=== PATIENT | male | born 1965 | race Caucasian/White ===

== ENCOUNTER → 2020-05-26 14:43 | Outpatient (CLI) | payer OTHER, SELFPAY ==
[2020-05-28 14:01] LABS: Covid-19 Nasal PCR Sendout Lex NOT DETECTED
== END ==
PROVIDERS: PCP Family Medicine; Visit Provider Family Medicine
DX: Z20.828 Contact with and (suspected) exposure to other viral communicable diseases (principal)
CPT/HCPCS: U0004

== ENCOUNTER → 2021-03-09 14:48 | Outpatient (CLI) | payer OTHER, SELFPAY ==
--- NOTE | 2021-03-09 14:48 | US_ITS ---
PROCEDURE: US TESTICULAR CLINICAL INDICATION: Left-sided testicular pain COMPARISON: No exams were available for comparison FINDINGS: Right testicle is 4.6 x 2.1 x 3.2 cm. No testicular mass apparent. There is blood flow present to the right testicle. Right epididymis has an unremarkable appearance. No hydrocele spermatocele or varicocele evident on the right. Left testicle is 4.5 x 2.3 x 2.8 cm. Testicle has an unremarkable appearance with no mass or hydrocele or varicocele apparent. There is a small epididymal cyst in the head of the epididymis measuring 6 mm. IMPRESSION: Small left-sided epididymal cyst otherwise negative bilateral testicular ultrasound Dictated by: Feliciano Rinaldi MD 03/09/2021 16:27 Feliciano Rinaldi MD in [place] 03/09/2021 16:27
== END ==
PROVIDERS: PCP Family Medicine; Visit Provider Surgery
DX: N50.819 Testicular pain, unspecified (principal)
CPT/HCPCS: 76870

== ENCOUNTER → 2021-07-02 08:08 | Outpatient (CLI) | payer OTHER, SELFPAY ==
--- NOTE | 2021-07-02 08:09 | CT_ITS ---
PROCEDURE: CT ABDOMEN PELVIS WO CON CLINICAL INDICATION: LLQ pain COMPARISON: No exams were available for comparison TECHNIQUE: Axial images obtained with sagittal and coronal reformats. All CT scans at the facility use one or more dose reduction, viz: automated exposure control, ma/kV adjustment per patient size (including targeted exams where dose is matched to indication, i.e. head), or iterative reconstruction technique. FINDINGS: LOWER THORAX: No acute finding ABDOMEN & PELVIS: The liver, spleen, pancreas, adrenal glands, and kidneys show no acute finding. No intestinal obstruction or free air. No evidence of appendicitis or diverticulitis. There is a mild amount retained colonic feces. There are few colonic diverticula but no evidence of diverticulitis. No pelvic mass or abnormal fluid collection. There is minimal thickening of the urinary bladder wall nonspecific. There is a tiny umbilical hernia containing fat IMPRESSION: Mild amount of retained colonic feces with few scattered colonic diverticula. No evidence of diverticulitis. There is mild urinary bladder wall thickening which may be seen with incomplete distension, chronic outflow obstruction, or cystitis. Dictated by: Feliciano Rinaldi MD 07/03/2021 10:49 Feliciano Rinaldi MD in [place] 07/03/2021 10:49
== END ==
PROVIDERS: PCP Family Medicine; Visit Provider Family Medicine
DX: R10.32 Left lower quadrant pain (principal)
CPT/HCPCS: 74176

== ENCOUNTER → 2021-07-20 13:45 | Outpatient (CLI) | payer OTHER, SELFPAY ==
[2021-07-20 16:18] LABS: Prostate Specific Ag Screen 0.5 ng/ml (0.0-4.0)
== END ==
PROVIDERS: Visit Provider Urology
DX: Z12.5 Encounter for screening for malignant neoplasm of prostate (principal)
CPT/HCPCS: 36415; G0103

== ENCOUNTER 2023-05-05 16:23 | Observation (INO) | payer OTHER, SELFPAY ==
[2023-05-05] VITALS (14 sets, daily range): BP systolic 96–126; BP diastolic 55–87; PULSE 62–79; RESP 16–20; TEMP -17.7–36.7; O2SAT 96–98; BMI 28.4
--- NOTE | 2023-05-05 | CA_ITS ---
APPROVED REPORT EXAM: Comprehensive 2D, Doppler, and color-flow Echocardiogram Log Chain Worker: Magalis Larsen RVT Ht: 5 ft 11 in Wt: 200lbs BSA: 2.11 BP: 108/68 mmHg Indications: STEMI,R/O PERICARDITIS,DM,CP,SMOKER TDS-PT FLAT ON BACK S/P CATH 2D Dimensions IVSd 0.62 cm M: 0.6-1.2 LVEF (Visual) 67.50 % PWd 0.99 cm M: 0.6 - 1.2 LA Volume 28.40 mL LVDd 3.87 cm M: 4.2 - 5.9 LA Volume Index 13.46 mL/m2 (M/F) 16-34 LVDs 2.44 cm M: 2.5 - 4.0 LVOT 2.04 cm (M/F) 1.5-2.5 M-Mode Dimensions LA Diam 3.26 cm (1.9-4.0) Ao Diam 3.34 cm (2.0-3.7) TAPSE 2.02 (<1.7) LV Diastology E Decel Time 297.00 (160-240 msec) E/A Ratio 0.9 MED E' 7.20 (< 7 cm/sec) E'/MED E' Ratio 8.62 (>14) LAT E' 9.50 (<10 cm/sec) E/LAT E' Ratio 6.54 (>14) Aortic Valve AO Peak GR. 5.00 mmHg Mitral Valve MV E Max Temo. 62.00 (40-130 cm/s) MV A Velocity 68.00 (40-130 cm/s) E/A Ratio 0.91 MV Decel. Time 297.00 (160-240 ms) MV PHT 87.00 ms Pulmonary Valve PV Peak Velocity 122.00 (50-150 cm/s) Tricuspid Valve TR P. Velocity 153.00 cm/s RAP Estimate 10.00 mmHg RVSP 19.30 mmHg Left Ventricle The left ventricle is normal size. The left ventricular systolic function is normal. The left ventricular ejection fraction is within the normal range. There is normal left ventricular wall thickness. There is mild hypokinesis of the inferolateral LV wall The left ventricular diastolic function is normal. LVEF is 60%. Right Ventricle The right ventricle is normal size. The right ventricular systolic function is normal. Atria The left atrium size is normal. The right atrium size is normal. There is no Doppler evidence of interatrial shunt. Aortic Valve The aortic valve is mildly thickened. The aortic valve opens well. There is no aortic valvular stenosis. No aortic regurgitation is present. Mitral Valve The mitral valve is normal in structure. No evidence of mitral valve stenosis. Trace mitral regurgitation. Tricuspid Valve The tricuspid valve leaflets are thin and pliable. There is trace tricuspid valve regurgitation noted. RVSP is normal. Pulmonic Valve The pulmonary valve is normal in structure. Trace pulmonic regurgitation. Great Vessels The aortic root is normal in size. The ascending aorta is not well visualized. IVC is normal in size and collapses >50% with inspiration. Pericardium There is a small pericardial effusion noted anteriorly. The largest pocket is towards the distal RV free wall, measuring approximately 0.6 cm in its largest dimension in diastole. There are no echo indications of tamponade. Other Information Study Quality: Fair Conclusion Normal biventricular systolic function. Mild hypokinesis of the inferolateral LV wall. Small pericardial effusion. No echo indications of tamponade. Electronically signed by : Farrah Nowak, 05/07/2023 17:37:59
--- NOTE | 2023-05-05 15:45 | IR_ITS ---
APPROVED REPORT Patient Location: [facility] Engineer: MADELYN Ervin RT (R) PROCEDURES Left heart catheterization Left ventriculogram Selective coronary angiogram INDICATION Inferolateral ST elevation myocardial infarction Informed consent was obtained prior to the procedure. COMPLICATIONS NONE Estimated Blood Loss: LESS THAN 10 ML TECHNIQUE One percent lidocaine used to anesthetize the right anterior aspect of the wrist. The right radial artery was accessed via the Seldinger technique. A 6 [place] sheath was placed in the right radial artery. 2.5 mg of Verapamil, 800 mcg of nitroglycerin, 1mg Lidocaine and 5000 U Heparin were given through the arterial sheath. The papa catheter was also used to perform left heart catheterization, left ventriculogram and selective coronary angiogram. At the end of the procedure the sheath was removed good hemostasis was achieved using Traclet band, patient was transferred to the postop holding area in stable condition. ANGIOGRAPHIC RESULTS The left main artery Normal The left anterior descending artery Proximally normal with a 70 to 80% mid myocardial bridge with remaining vessel widely patent The circumflex artery Nondominant with 20 to 30% mid stenoses The right coronary artery Large and dominant with diffuse proximal mid vessel and distal 30% stenoses The LOVE ventriculogram reveals Slightly hyperdynamic at 70% The left ventricular end-diastolic pressure 10 mmHg IMPRESSION Myocardial bridge which is clinically insignificant at this time Mild nonflow limiting coronary disease Hyperdynamic ventricle Normal left ventricular end-diastolic pressure ST elevation consistent with pericarditis PLAN 1. Supportive care 2. Consider providing colchicine for pericarditis 3. Echocardiogram to evaluate pericardial effusion 4. Discontinue heparin 5. LDL less than 55 to be achieved with high intensity statin Electronically signed by : John Francois MD 05/05/2023 16:16:24
--- NOTE | 2023-05-05 15:50 | PC.NURSE ---
MD. Maher spoke with Priscila before pt arrived, concerned for STEMI due to EKG completed in PCP. Pt was assessed by LEN ELLIS and sent with house registry rn to [facility].
--- NOTE | 2023-05-05 15:54 | HMH.EDGENADL ---
Discharge Plan Disposition Patient Disposition: Home, Self-Care Prescriptions Prescriptions: No Action sildenafil [Viagra] 100 mg tablet 100 mg PO DAILY PRN (Reason: sexual activity) Qty: 10 10RF Rx Instructions: administer 30 minutes to 4 hours before activity fluoxetine [Prozac] 20 mg capsule 20 mg PO DAILY Qty: 90 3RF albuterol sulfate 90 mcg/actuation HFA aerosol inhaler 2 puff IH QID PRN (Reason: shortness of breath or wheezing) Qty: 8.5 10RF metformin 500 mg tablet 500 mg PO BID Qty: 180 3RF atorvastatin [Lipitor] 20 mg tablet 20 mg PO DAILY Qty: 90 3RF lisinopril 10 mg tablet 10 mg PO DAILY Qty: 90 3RF aspirin 81 mg tablet,chewable 81 mg PO DAILY Qty: 100 10RF Clinical Impressions Clinical Impression: ACS (acute coronary syndrome) Discharge ED Provider: Baltazar Maher General Adult HPI General Stated complaint: STEMI ALERT Time Seen by Provider: 05/05/23 15:54 History of Present Illness HPI narrative: Patient is a 57-year-old male, smoker, no cardiac history who presents emergency department via EMS for evaluation of a STEMI. Patient has had chest pain for the last 3 days, waxing and waning. He presented to outside clinic today where EKG was concerning for STEMI. The case was discussed with cardiology and outside provider who agree patient requires emergent heart catheterization. He presents to the ER to assess stability prior to transfer to [facility]. No other acute complaints at this time. In route patient remained hemodynamically stable Related Data Previous Rx's Medication Instructions Recorded sildenafil 100 mg tablet (Viagra) 100 mg PO DAILY PRN sexual 01/08/21 activity #10 tabs fluoxetine 20 mg capsule (Prozac) 20 mg PO DAILY #90 caps 06/14/21 albuterol sulfate 90 mcg/actuation 2 puff inhalation QID PRN 05/03/22 aerosol inhaler shortness of breath or wheezing #8.5 grams aspirin 81 mg chewable tablet 81 mg PO DAILY #100 tabs 09/10/22 atorvastatin 20 mg tablet (Lipitor) 20 mg PO DAILY #90 tabs 09/10/22 lisinopril 10 mg tablet 10 mg PO DAILY #90 tabs 09/10/22 metformin 500 mg tablet 500 mg PO BID #180 tabs 09/10/22 Allergies Allergy/AdvReac Type Severity Reaction Status Date / Time No Known Allergies Allergy Verified 05/05/23 14:13 [facility] Disclaimer: The information contained in this section may have been updated after the patient was seen, as this information can be updated by other users. Social History Smoking Status: Current every day smoker tobacco type: cigarettes alcohol intake: current substance use type: denies use current occupational status: employed Travel in the last 8 weeks: None household members: spouse housing: house ROS Obtained: Yes Systems reviewed as appropriate & no additional complaints except as documented Physical Exam General General appearance: alert and in no apparent distress Head Head exam: atraumatic and normocephalic Eye Eye exam: Present PERRL and EOMI ENT ENT exam: Present mucous membranes moist Neck Neck exam: Present normal inspection Chest Chest inspection: Present normal inspection and symmetric chest wall rise Respiratory Respiratory exam: Present normal lung sounds bilaterally; Absent respiratory distress Cardiovascular Cardiovascular exam: Present regular rate, normal rhythm and other (Capillary refill less than 2 seconds) Abdominal Exam Abdominal exam: Present soft; Absent tenderness Extremities Exam Extremities exam: Present normal inspection Neurological Exam Neurological exam: Present alert Psychiatric Psychiatric exam: Present normal affect Skin Skin exam: Present warm and dry Medical Decision Making Giovanni Inquiry Pt receiving controlled substance: No Medical Decision Narrative: In summary patient is a 57-year-old male with past medical history described above who presents emergency department for
[2023-05-05 16:17] LABS: Basophils # 0.1 K/mm3 (0-0.2); Basophils % 0.8 % (0.1-2.0); Eosinophils # 0.3 K/mm3 (0.0-0.4); Eosinophils % 5.3 % (0.1-12.0); Hematocrit 46.7 % (42.0-52.0); Hemoglobin 15.6 g/dL (14.1-18.0); Lymphocytes # 2.4 K/mm3 (0.7-4.5); Mean Corpuscular HGB Conc 33.5 g/dL (31.8-35.4); Mean Corpuscular Hemoglobin 32.6 pg (27.0-31.2); Mean Corpuscular Volume 97.3 fl (80-94); Mean Platelet Volume 8.2 fl (7.4-10.4); Monocytes # 0.4 K/mm3 (0.1-1.0); Monocytes % 6.6 % (1.7-9.3); Neutrophils # 3.2 K/mm3 (1.8-7.8); Neutrophils % 50.3 % (37.0-80.0); Platelet Count 161 K/mm3 (142-424); Red Cell Distribution Width 12.5 % (11.5-17.5); White Blood Count 6.4 K/mm3 (4.8-10.8)
[2023-05-05 16:31] LABS: Anion Gap 11.2 mEq/L (5-15); Blood Urea Nitrogen 11 mg/dl (9-20); Calcium 8.4 mg/dl (8.4-10.2); Carbon Dioxide 24 mmol/L (22.0-30.0); Chloride 105 mmol/L (98-107); Creatinine Clearance Estimated 156 mL/min (50-200); Estimated Glomerular Filt Rate 117 ml/min (>60); GFR (African American) 142 ML/MIN (>60); Glucose 117 mg/dl (74-100); Potassium 4.2 mmoL/L (3.5-5.1); Sodium 136 mmol/L (136-145)
--- NOTE | 2023-05-05 17:08 | EXP.HP ---
[facility] Disclaimer: The information contained in this section may have been updated after the patient was seen, as this information can be updated by other users. Medical History (Updated 05/05/23 @ 17:00 by Liss Chao RN) Diabetes High cholesterol Family History (Updated 05/05/23 @ 17:00 by Liss Chao RN) Other Dementia Family history of hyperlipidemia Family history of hypertension Family history of myocardial infarction Social History (Updated 05/05/23 @ 17:01 by Liss Chao RN) Smoking Status: Current every day smoker tobacco type: cigarettes alcohol intake: current substance use type: denies use current occupational status: employed Travel in the last 8 weeks: None household members: spouse housing: house Meds Home Medications and Allergies Home Medications Medication Instructions Recorded Confirmed Type sildenafil 100 mg tablet (Viagra) 100 mg PO DAILY PRN sexual 01/08/21 05/05/23 Rx activity #10 tabs fluoxetine 20 mg capsule (Prozac) 20 mg PO DAILY #90 caps 06/14/21 05/05/23 Rx albuterol sulfate 90 mcg/actuation 2 puff inhalation QID PRN 05/03/22 05/05/23 Rx aerosol inhaler shortness of breath or wheezing #8.5 grams aspirin 81 mg chewable tablet 81 mg PO DAILY #100 tabs 09/10/22 05/05/23 Rx atorvastatin 20 mg tablet (Lipitor) 20 mg PO DAILY #90 tabs 09/10/22 05/05/23 Rx lisinopril 10 mg tablet 10 mg PO DAILY #90 tabs 09/10/22 05/05/23 Rx metformin 500 mg tablet 500 mg PO BID #180 tabs 09/10/22 05/05/23 Rx New Prescriptions to Start Prescriptions: Allergies Allergy/AdvReac Type Severity Reaction Status Date / Time No Known Allergies Allergy Verified 05/05/23 14:13 Exam Data for Last 24 hours Vital signs and Labs for Last 24 Hours: Temp Pulse Resp BP Pulse Ox O2 Del Method 0 F L 65 20 126/87 97 Room Air 05/05/23 15:54 05/05/23 16:50 05/05/23 16:50 05/05/23 16:50 05/05/23 16:50 05/05/23 16:50 Laboratory Results - last 24 hr 05/05/23 16:05: WBC 6.4, RBC 4.80, Hgb 15.6, Hct 46.7, MCV 97.3 H, MCH 32.6 H, MCHC 33.5, RDW 12.5, Plt Count 161, MPV 8.2, Neut % (Auto) 50.3, Lymph % (Auto) 37.0, [place] % (Auto) 6.6, Eos % (Auto) 5.3, Baso % (Auto) 0.8, Neut # (Auto) 3.2, Lymph # (Auto) 2.4, [place] # (Auto) 0.4, Eos # (Auto) 0.3, Baso # (Auto) 0.1, Sodium 136, Potassium 4.2, Chloride 105, Carbon Dioxide 24, Anion Gap 11.2, BUN 11, Creatinine 0.70, Estimated Creat Clear 156, Estimated GFR 117, Est GFR ( Amer) 142, Glucose 117 H, Calcium 8.4 I & O for Last 24 hours: Intake & Output 05/02/23 05/03/23 05/04/23 05/05/23 23:59 23:59 23:59 23:59 Weight 92.533 kg
--- NOTE | 2023-05-05 17:50 | EXP.HPDC ---
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 He presented to the ED with 2 weeks of intermittent chest pain. EKG was concerning for an inferior STEMI so the patient was taken directly from the ER to the ballistics laboratory gun[facility]. LHC revealed mild nonflow limiting coronary disease. ST elevation from the EKG is thought to be due to pericarditis. [facility] Disclaimer: The information contained in this section may have been updated after the patient was seen, as this information can be updated by other users. Medical History (Updated 05/05/23 @ 18:10 by Gerson Waldron MD) Diabetes High cholesterol Family History (Updated 05/05/23 @ 17:00 by Liss Chao RN) Other Dementia Family history of hyperlipidemia Family history of hypertension Family history of myocardial infarction Social History (Updated 05/05/23 @ 17:01 by Liss Chao RN) Smoking Status: Current every day smoker tobacco type: cigarettes alcohol intake: current substance use type: denies use current occupational status: employed Travel in the last 8 weeks: None household members: spouse housing: house Review of Systems Review of Systems Review of systems:: pertinent systems reviewed and negative unless documented below *Cardiovascular Cardiovascular: Reports chest pain Exam Data for Last 24 hours Vital signs and Labs for Last 24 Hours: Temp Pulse Resp BP Pulse Ox O2 Del Method 98.0 F 72 16 104/70 L 97 Room Air 05/05/23 17:17 05/05/23 17:35 05/05/23 17:35 05/05/23 17:35 05/05/23 17:35 05/05/23 17:35 Laboratory Results - last 24 hr 05/05/23 16:05: WBC 6.4, RBC 4.80, Hgb 15.6, Hct 46.7, MCV 97.3 H, MCH 32.6 H, MCHC 33.5, RDW 12.5, Plt Count 161, MPV 8.2, Neut % (Auto) 50.3, Lymph % (Auto) 37.0, [place] % (Auto) 6.6, Eos % (Auto) 5.3, Baso % (Auto) 0.8, Neut # (Auto) 3.2, Lymph # (Auto) 2.4, [place] # (Auto) 0.4, Eos # (Auto) 0.3, Baso # (Auto) 0.1, Sodium 136, Potassium 4.2, Chloride 105, Carbon Dioxide 24, Anion Gap 11.2, BUN 11, Creatinine 0.70, Estimated Creat Clear 156, Estimated GFR 117, Est GFR ( Amer) 142, Glucose 117 H, Calcium 8.4 I & O for Last 24 hours: Intake & Output 05/02/23 05/03/23 05/04/23 05/05/23 23:59 23:59 23:59 23:59 Weight 92.533 kg Constitutional Constitutional: no acute distress *Routine HEENT Exam Head: Present normocephalic Eye: Present EOMI and PERRL ENT: Present mucous membranes moist *Routine Neck Exam Neck: Present supple; Absent lymphadenopathy *Routine Respiratory Exam Respiratory: Present CTA bilaterally *Routine Cardiovascular Exam Cardiovascular: Present RRR *Routine Abdominal Exam Abdominal: Present soft and normoactive bowel sounds; Absent tenderness *Routine Rectal Exam Rectal:: deferred *Routine Genitalia Exam Genitalia:: deferred *Routine Extremities Exam Extremities: Absent cyanosis, clubbing or edema *Routine Skin Exam Skin: Present warm; Absent rash *Routine Neurological Exam Neurological: Present alert and oriented X3 Meds Home Medications and Allergies Home Medications Medication Instructions Recorded Confirmed Type sildenafil 100 mg tablet (Viagra) 100 mg PO DAILY PRN sexual 01/08/21 05/05/23 Rx activity #10 tabs fluoxetine 20 mg capsule (Prozac) 20 mg PO DAILY #90 caps 06/14/21 05/05/23 Rx albuterol sulfate 90 mcg/actuation 2 puff inhalation QID PRN 05/03/22 05/05/23 Rx aerosol inhaler shortness of breath or wheezing #8.5 grams aspirin 81 mg chewable tablet 81 mg PO DAILY #100 tabs 09/10/22 05/05/23 Rx atorvastatin 20 mg tablet (Lipitor) 20 mg PO DAILY #90 tabs 09/10/22 05/05/23 Rx lisinopril 10 mg tablet 10 mg PO DAILY #90 tabs 09/10/22 05/05/23 Rx metformin
--- NOTE | 2023-05-08 14:57 | CARE MANAGER ---
Spoke with patient related to hospital discharge. He states he is doing well. he did have some pain he was concerned about but spoke with PCP and feels better now. He has a follow up appointment on and picked up his new medication. Denies any questions or concerns. FRANK Callahan
== END 2023-05-05 19:52 | disposition home or self-care (01) ==
LOC: ER 16:25 → 2ND 16:27
PROVIDERS: Internal Medicine; Admitting Provider Internal Medicine; Emergency Provider Emergency Medicine; PCP Family Medicine; Visit Provider Internal Medicine
DX: I21.19 ST elevation (STEMI) myocardial infarction involving other coronary artery of inferior wall (principal); F17.210 Nicotine dependence, cigarettes, uncomplicated; I10 Essential (primary) hypertension; E11.9 Type 2 diabetes mellitus without complications; Z79.84 Long term (current) use of oral hypoglycemic drugs; Z79.899 Other long term (current) drug therapy
CPT/HCPCS: 80048; 85025; 93306; 93458; 99152; 99285; C1725; C1769; G0378; J1644; Q9967

== ENCOUNTER → 2023-05-11 | Outpatient (CLI) | payer OTHER, SELFPAY ==
[2023-05-11 19:39] LABS: Chol/HDL Ratio 2.8 (1-3.5); Cholesterol 122 mg/dl (140-200); HDL Cholesterol 43 mg/dl (40-60); Triglycerides 108 mg/dl (30-150); VLDL Cholesterol 22 mg/dL (0-40)
[2023-05-11 19:51] LABS: Direct LDL Cholesterol 62.52 mg/dL (100-129)
[2023-05-11 20:11] LABS: Prostate Specific Ag Screen 0.4 ng/ml (0.0-4.0)
[2023-05-11 22:14] LABS: Hemoglobin A1C 6.8 % (4.0-6.0)
== END ==
PROVIDERS: PCP Family Medicine; Visit Provider Family Medicine
DX: Z09 Encounter for follow-up examination after completed treatment for conditions other than malignant neoplasm (principal); E11.9 Type 2 diabetes mellitus without complications; Z79.84 Long term (current) use of oral hypoglycemic drugs; Z12.5 Encounter for screening for malignant neoplasm of prostate
CPT/HCPCS: 80061; 83036; G0103

== ENCOUNTER → 2023-06-15 23:08 | Outpatient (CLI) | payer OTHER, SELFPAY ==
[2023-06-15 18:12] LABS: Influenza A, PCR Not Detected (NotDetected); Influenza B, PCR Not Detected (NotDetected)
[2023-06-15 19:23] LABS: Coronavirus 19, PCR Detected (NotDetected)
== END ==
PROVIDERS: PCP Family Medicine; Visit Provider Family Medicine
DX: U07.1 COVID-19; R05.9 Cough, unspecified
CPT/HCPCS: 87636

== ENCOUNTER 2023-07-18 18:41 | Emergency (ER) | payer OTHER, SELFPAY ==
[2023-07-18 18:41] VITALS: BP 155/91; PULSE 71; RESP 16; TEMP 36.9; O2SAT 100; BMI 28.5
--- NOTE | 2023-07-18 18:41 | ECG_ITS ---
APPROVED REPORT Exam: Resting ECG HR:65 bpm ECG Measurements Heart Rate 65 AXES IA 151 P 83 QRSd 88 QRS 85 QT 379 T 80 QTc 391 Conclusion SINUS RHYTHM MODERATE ST DEPRESSION [0.05+ mV ST DEPRESSION] ABNORMAL ECG UNCONFIRMED REPORT Electronically signed by : Amilcar Padilla MD 07/20/2023 21:41:18
--- NOTE | 2023-07-18 19:04 | XR_ITS ---
PROCEDURE INFORMATION: Exam: XR Chest Exam date and time: 07/18/2023 7:37 PM Age: 57 years old Clinical indication: Cough and other: Chest pain TECHNIQUE: Imaging protocol: Radiologic exam of the chest. Views: 1 view. COMPARISON: CT ABDOMEN PELVIS WO CON 07/02/2021 8:10 AM FINDINGS: Lungs: Unremarkable. No consolidation. Pleural spaces: Unremarkable. No pleural effusion. No pneumothorax. Heart/Mediastinum: Unremarkable. No cardiomegaly. Bones/joints: Unremarkable. IMPRESSION: No acute findings.
--- NOTE | 2023-07-18 19:15 | HMH.EDGENADL ---
Discharge Plan Disposition Patient Disposition: Home, Self-Care Prescriptions Prescriptions: New ibuprofen 800 mg tablet 800 mg PO TID PRN (Reason: pain) 7 Days Qty: 20 0RF prednisone 50 mg tablet 50 mg PO DAILY 5 Days Qty: 5 0RF Rx Instructions: Please begin 1 day after ED visit No Action nicotine 21 mg/24 hr patch 24 hour 1 patch transdermal DAILY Qty: 28 5RF albuterol sulfate 90 mcg/actuation HFA aerosol inhaler 2 puff IH QID PRN (Reason: shortness of breath or wheezing) Qty: 8.5 10RF aspirin 81 mg tablet,chewable 81 mg PO DAILY Qty: 100 10RF atorvastatin [Lipitor] 20 mg tablet 20 mg PO DAILY Qty: 90 3RF lisinopril 10 mg tablet 10 mg PO DAILY Qty: 90 3RF metformin 500 mg tablet 500 mg PO BID Qty: 180 3RF clobetasol 0.05 % cream 1 applic topical BID 14 Days Qty: 30 3RF clobetasol 0.05 % cream 1 applic topical BID 14 Days Qty: 60 0RF sulfamethoxazole-trimethoprim [Bactrim DS] 800-160 mg tablet 1 tab PO BID Qty: 20 0RF colchicine (gout) 0.6 mg capsule 0.6 mg PO BID 90 Days Qty: 60 3RF Referrals Follow up/Referrals: John Francois MD [Staff Physician] - See instructions (tomorrow 11 am, no need to call, hes expecting you ) Gerson Waldron MD [Primary Care Provider] - See instructions Activity Restrictions/Add. Instructions Additional Instructions/Restrictions: There is no evidence of any myocardial involvement today. There is also no evidence of a pericardial effusion. Please take your colchicine or ibuprofen and your steroids. Dr. Francois is expecting you tomorrow at 11 AM in his clinic. Clinical Impressions Clinical Impression: Recurrent idiopathic pericarditis Discharge ED Provider: [place] Zamora General Adult [facility] General Chief complaint: Chest Pain Stated complaint: CHEST PAIN Time Seen by Provider: 07/18/23 18:48 Mode of Arrival: Ambulatory Source of Information: Patient Limitations: No Limitations Description of Symptoms (Recalled from ER Triage Doc. by RN): Patient states he has been having on and off chest pain that comes and goes. Patient states that his pain is more around his stomach area. Denies any current pain at this time. States he took 3- 81mg Aspirin before coming in today. [facility] he had a heart cath on May 07 and did not require stents. History of Present Illness HPI narrative: The patient is a 57-year-old male with a history of pericarditis presents today with similar symptoms. [facility] this was first diagnosed in April where he was diagnosed with ST elevations and taken to the [facility] for concern for possible STEMI where he had a negative heart cath and was diagnosed ultimately with pericarditis. He had a subsequent visit to [facility] where he had a pericardial effusion and was started on colchicine which she has been on for 2 months. He is not on any NSAIDs or steroids. States has had recurrent symptoms recently pain is described as retrosternal worsening with lying back improves with sitting forward. This is nonexertional he has no shortness of breath diaphoresis or other concerns. [facility] his physician Dr. Waldron told him come to the emergency department and to follow-up with Dr. Francois for possible. Related Data Previous Rx's Medication Instructions Recorded albuterol sulfate 90 mcg/actuation 2 puff inhalation QID PRN 05/11/23 aerosol inhaler shortness of breath or wheezing #8.5 grams aspirin 81 mg chewable tablet 81 mg PO DAILY #100 tabs 05/11/23 atorvastatin 20 mg tablet (Lipitor) 20 mg PO DAILY #90 tabs 05/11/23 clobetasol 0.05 % topical cream 1 applic topical BID 2 weeks #30 05/11/23 grams lisinopril 10 mg tablet 10 mg PO DAILY #90 tabs 05/11/23 metformin 500 mg tablet 500 mg PO BID #180 tabs 05/11/23 nicotine 21 mg/24 hr daily 1 patch transdermal DAILY #28 ea 05/11/23 transdermal patch clobetasol 0.05 % topical cream 1 applic topical BID 2 weeks #60 05/24/23 grams sulfamethoxazole 800 1 t
[2023-07-18 19:18] LABS: Basophils # 0.1 K/mm3 (0-0.2); Basophils % 0.8 % (0.1-2.0); Eosinophils # 0.3 K/mm3 (0.0-0.4); Eosinophils % 4.1 % (0.1-12.0); Hematocrit 46.5 % (42.0-52.0); Lymphocytes # 2.7 K/mm3 (0.7-4.5); Lymphocytes % 42.8 % (10-50); Mean Corpuscular HGB Conc 34.4 g/dL (31.8-35.4); Mean Corpuscular Hemoglobin 34.1 pg (27.0-31.2); Mean Corpuscular Volume 99.2 fl (80-94); Mean Platelet Volume 8.4 fl (7.4-10.4); Monocytes # 0.5 K/mm3 (0.1-1.0); Monocytes % 7.5 % (1.7-9.3); Neutrophils # 2.8 K/mm3 (1.8-7.8); Neutrophils % 44.8 % (37.0-80.0); Platelet Count 143 K/mm3 (142-424); Red Blood Count 4.68 M/mm3 (4.60-6.20); Red Cell Distribution Width 12.8 % (11.5-17.5); White Blood Count 6.3 K/mm3 (4.8-10.8)
[2023-07-18 19:23] LABS: Alanine Aminotransferase 52 U/L (12-78); Albumin Level 4.3 g/dl (3.5-5.0); Albumin/Globulin Ratio 1.6 (1.1-1.8); Alkaline Phosphatase 84 U/L (38-126); Anion Gap 9.3 mEq/L (5-15); Aspartate Amino Transferase 53 U/L (17-59); Bilirubin,Total 0.3 mg/dl (0.2-1.3); Blood Urea Nitrogen 12 mg/dl (9-20); Calcium 9.8 mg/dl (8.4-10.2); Carbon Dioxide 31 mmol/L (22.0-30.0); Chloride 98 mmol/L (98-107); Creatinine Clearance Estimated 137 mL/min (50-200); Estimated Glomerular Filt Rate 100 ml/min (>60); GFR (African American) 121 ML/MIN (>60); Globulin 2.7 g/dL (1.3-3.2); Glucose 94 mg/dl (74-100); Potassium 4.3 mmoL/L (3.5-5.1); Sodium 134 mmol/L (136-145)
[2023-07-18 19:39] LABS: Troponin I < 0.01 ng/ml (0.00-0.034)
[2023-07-18 20:15] VITALS: BP 127/83; PULSE 64; RESP 13; TEMP 36.9; O2SAT 97
[2023-07-18 20:17] LABS: C-Reactive Protein 0.4 mg/L (0-4)
[2023-07-18 20:29] LABS: Erythrocyte Sedimentation Rate 14 mm/hr (0-20)
== END 2023-07-18 20:16 | disposition home or self-care (01) ==
PROVIDERS: Emergency Provider Student in an Organized Health Care Education/Training Program; PCP Family Medicine
DX: I30.8 Other forms of acute pericarditis (principal); F17.210 Nicotine dependence, cigarettes, uncomplicated; E11.9 Type 2 diabetes mellitus without complications; E78.00 Pure hypercholesterolemia, unspecified; Z79.84 Long term (current) use of oral hypoglycemic drugs
CPT/HCPCS: 71045; 80053; 84484; 85025; 85651; 86140; 93005; 99285

== ENCOUNTER → 2023-07-19 12:13 | Outpatient (CLI) | payer OTHER, SELFPAY ==
[2023-07-19 13:43] LABS: Basophils # 0.1 K/mm3 (0-0.2); Basophils % 0.9 % (0.1-2.0); Eosinophils # 0.3 K/mm3 (0.0-0.4); Eosinophils % 4.7 % (0.1-12.0); Lymphocytes # 2.2 K/mm3 (0.7-4.5); Lymphocytes % 40.2 % (10-50); Mean Corpuscular Hemoglobin 34.7 pg (27.0-31.2); Mean Corpuscular Volume 102.3 fl (80-94); Mean Platelet Volume 8.8 fl (7.4-10.4); Monocytes # 0.4 K/mm3 (0.1-1.0); Monocytes % 6.9 % (1.7-9.3); Neutrophils # 2.6 K/mm3 (1.8-7.8); Neutrophils % 47.3 % (37.0-80.0); Platelet Count 138 K/mm3 (142-424); Red Blood Count 4.89 M/mm3 (4.60-6.20); White Blood Count 5.5 K/mm3 (4.8-10.8)
[2023-07-19 14:07] LABS: Erythrocyte Sedimentation Rate 2 mm/hr (0-20)
[2023-07-19 15:27] LABS: Anion Gap 10.7 mEq/L (5-15); Blood Urea Nitrogen 10 mg/dl (9-20); Calcium 9.7 mg/dl (8.4-10.2); Carbon Dioxide 31 mmol/L (22.0-30.0); Chloride 98 mmol/L (98-107); Estimated Glomerular Filt Rate 117 ml/min (>60); GFR (African American) 142 ML/MIN (>60); Glucose 106 mg/dl (74-100); Potassium 4.7 mmoL/L (3.5-5.1); Sodium 135 mmol/L (136-145)
[2023-07-19 15:33] LABS: C-Reactive Protein 0.3 mg/L (0-4)
[2023-07-19 15:44] LABS: Free T4 (Free Thyroxine) 1.06 ng/dl (0.78-2.19)
[2023-07-19 16:00] LABS: Thyroid Stimulating Hormone 0.94 uIU/mL (0.465-4.68)
[2023-07-21 17:59] LABS: Antinuclear Antibodies, IFA Negative (.)
== END ==
PROVIDERS: PCP Family Medicine; Visit Provider Internal Medicine
DX: I25.10 Atherosclerotic heart disease of native coronary artery without angina pectoris (principal); I30.0 Acute nonspecific idiopathic pericarditis; E11.9 Type 2 diabetes mellitus without complications; Z72.0 Tobacco use; Z79.84 Long term (current) use of oral hypoglycemic drugs
CPT/HCPCS: 36415; 80048; 84439; 84443; 85025; 85651; 86038; 86140

== ENCOUNTER → 2023-08-01 13:29 | Outpatient (CLI) | payer OTHER, SELFPAY ==
--- NOTE | 2023-08-01 13:31 | CA_ITS ---
APPROVED REPORT EXAM: Comprehensive 2D, Doppler, and color-flow Echocardiogram Emotional Support Teacher: Joanne Skaggs RT(R) Ht: 5 ft 11 in Wt: 205lbs BSA: 2.13 BP: 118/76 mmHg Indications: smoker, CAD, pericariditis 2D Dimensions LVOT 1.83 cm (M/F) 1.5-2.5 LVEF (Gates's) 60.10 % M: 52 - 72 LV Volume 101.20 mL M: 62 - 150 LV Volume Index 47.51 mL/m2 M: 34 - 74 LA Volume 17.50 mL LA Volume Index 8.22 mL/m2 (M/F) 16-34 M-Mode Dimensions RVDd 2.82 cm (0.9-2.6) LA Diam 3.12 cm (1.9-4.0) LVDd 4.75 cm (3.5-5.7) Ao Diam 3.09 cm (2.0-3.7) LVDs 3.46 cm (3.5-5.7) IVSd 0.89 cm (0.6-1.1) PWd 0.75 cm (0.6-1.1) EF (Teich) 52.80% FS 27.20% EDV (Teich) 104.90 mL ESV (Teich) 49.50 mL LV Diastology E Decel Time 150.00 (160-240 msec) E/A Ratio 1.9 MED E' 8.70 (< 7 cm/sec) E'/MED E' Ratio 10.76 (>14) LAT E' 13.50 (<10 cm/sec) E/LAT E' Ratio 6.93 (>14) Mitral Valve MV E Max Temo. 94.00 (40-130 cm/s) MV A Velocity 50.00 (40-130 cm/s) E/A Ratio 1.89 MV Decel. Time 150.00 (160-240 ms) MV PHT 44.00 ms Left Ventricle The left ventricle is normal size. The left ventricular systolic function is normal. The left ventricular ejection fraction is within the normal range. There is normal left ventricular wall thickness. There is normal LV segmental wall motion. The left ventricular diastolic function is normal. LVEF is 60-65%. Right Ventricle The right ventricle is normal size. The right ventricular systolic function is normal. Atria The left atrium size is normal. The right atrium size is normal. There is no Doppler evidence of interatrial shunt. Aortic Valve The aortic valve is mildly thickened. There is no aortic valvular stenosis. Trace aortic regurgitation. Mitral Valve The mitral valve is normal in structure. No evidence of mitral valve stenosis. Trace mitral regurgitation. Tricuspid Valve The tricuspid valve leaflets are thin and pliable. Trace tricuspid regurgitation. There is insufficient TR jet to estimate RVSP. Pulmonic Valve The pulmonary valve is normal in structure. Trace pulmonic regurgitation. Great Vessels The aortic root is normal in size. The ascending aorta is normal in size. IVC is normal in size and collapses >50% with inspiration. Pericardium Trivial anterior pericardial effusion. Other Information Study Quality: Fair Conclusion Normal biventricular systolic function. No significant valvular stenosis or regurgitation. Trivial anterior pericardial effusion. Compared to prior study from 04/2023, the pericardial effusion appears to be improved. Electronically signed by : Farrah Nowak MD 08/08/2023 14:36:56
== END ==
PROVIDERS: PCP Family Medicine; Visit Provider Internal Medicine
DX: I25.10 Atherosclerotic heart disease of native coronary artery without angina pectoris (principal); I30.0 Acute nonspecific idiopathic pericarditis; E11.9 Type 2 diabetes mellitus without complications; Z79.84 Long term (current) use of oral hypoglycemic drugs; Z72.0 Tobacco use
CPT/HCPCS: 93306

== ENCOUNTER 2023-12-14 18:48 | Outpatient (CLI) | payer OTHER, SELFPAY ==
[2023-12-14 18:16] LABS: Basophils # 0.1 K/mm3 (0-0.2); Basophils % 1.6 % (0.1-2.0); Eosinophils # 0.3 K/mm3 (0.0-0.4); Hemoglobin 16.3 g/dL (14.1-18.0); Lymphocytes # 1.8 K/mm3 (0.7-4.5); Lymphocytes % 27.8 % (10-50); Mean Corpuscular HGB Conc 32.6 g/dL (31.8-35.4); Mean Corpuscular Hemoglobin 34.2 pg (27.0-31.2); Mean Platelet Volume 10.5 fl (7.4-10.4); Monocytes # 0.4 K/mm3 (0.1-1.0); Monocytes % 5.9 % (1.7-9.3); Neutrophils % 60.7 % (37.0-80.0); Platelet Count 219 K/mm3 (142-424); Red Blood Count 4.77 M/mm3 (4.60-6.20); Red Cell Distribution Width 12.7 % (11.5-17.5); White Blood Count 6.6 K/mm3 (4.8-10.8)
[2023-12-14 18:34] LABS: Erythrocyte Sedimentation Rate 11 mm/hr (0-20)
[2023-12-14 18:46] LABS: Alanine Aminotransferase 39 U/L (12-78); Albumin Level 3.9 g/dl (3.5-5.0); Albumin/Globulin Ratio 1.6 (1.1-1.8); Alkaline Phosphatase 78 U/L (38-126); Anion Gap 11.6 mEq/L (5-15); Aspartate Amino Transferase 35 U/L (17-59); Bilirubin,Total 0.5 mg/dl (0.2-1.3); Blood Urea Nitrogen 12 mg/dl (9-20); Calcium 9.6 mg/dl (8.4-10.2); Carbon Dioxide 25 mmol/L (22.0-30.0); Chloride 102 mmol/L (98-107); Chol/HDL Ratio 3.3 (1-3.5); Cholesterol 129 mg/dl (140-200); Estimated Glomerular Filt Rate 117 ml/min (>60); GFR (African American) 141 ML/MIN (>60); Globulin 2.5 g/dL (1.3-3.2); Glucose 132 mg/dl (74-100); HDL Cholesterol 39 mg/dl (40-60); Potassium 4.6 mmoL/L (3.5-5.1); Sodium 134 mmol/L (136-145); Total Protein,Serum 6.4 g/dl (6.3-8.2); Triglycerides 98 mg/dl (30-150); VLDL Cholesterol 20 mg/dL (0-40)
[2023-12-14 18:57] LABS: C-Reactive Protein 1.2 mg/L (0-4); Direct LDL Cholesterol 69.59 mg/dL (100-129)
== END 2023-12-14 23:59 ==
LOC: LAB.DROPOF 18:49
PROVIDERS: PCP Family Medicine; Visit Provider Family Medicine
DX: E11.9 Type 2 diabetes mellitus without complications (principal); E78.00 Pure hypercholesterolemia, unspecified; I25.10 Atherosclerotic heart disease of native coronary artery without angina pectoris; Z79.84 Long term (current) use of oral hypoglycemic drugs; F17.210 Nicotine dependence, cigarettes, uncomplicated
CPT/HCPCS: 80053; 80061; 85025; 85651; 86140

== ENCOUNTER 2024-01-09 11:23 | Emergency (ER) | payer OTHER, SELFPAY ==
[2024-01-09] VITALS (8 sets, daily range): BP systolic 118–147; BP diastolic 76–90; PULSE 58–71; RESP 16–18; TEMP 36.5–36.7; O2SAT 94–100; BMI 28.5
--- NOTE | 2024-01-09 11:23 | ECG_ITS ---
APPROVED REPORT Exam: Resting ECG HR:59 bpm ECG Measurements Heart Rate 59 AXES CO 141 P 58 QRSd 94 QRS 80 QT 385 T 59 QTc 385 Conclusion SINUS BRADYCARDIA Upsloping ST elevations II. III and aVF, no reciprocal change. Likely repolarization variant Electronically signed by : STACIE LAGUERRE, 01/11/2024 19:36:45
--- NOTE | 2024-01-09 11:24 | ED_ITS ---
Discharge Plan Disposition Patient Disposition: Home, Self-Care Condition: Good Prescriptions Prescriptions: No Action nicotine 21 mg/24 hr patch 24 hour 1 patch transdermal DAILY Qty: 28 5RF aspirin 81 mg tablet,chewable 81 mg PO DAILY Qty: 100 10RF atorvastatin [Lipitor] 20 mg tablet 20 mg PO DAILY Qty: 90 3RF lisinopril 10 mg tablet 10 mg PO DAILY Qty: 90 3RF metformin 500 mg tablet 500 mg PO BID Qty: 180 3RF omeprazole 20 mg capsule,delayed release(DR/EC) 20 mg PO DAILY Qty: 30 2RF albuterol sulfate 90 mcg/actuation HFA aerosol inhaler 2 puff IH QID PRN (Reason: shortness of breath or wheezing) Qty: 8.5 10RF ibuprofen 800 mg tablet 800 mg PO TID PRN (Reason: pain) 7 Days Qty: 20 0RF Referrals Follow up/Referrals: Gerson Waldron MD [Primary Care Provider] - See instructions Activity Restrictions/Add. Instructions Additional Instructions/Restrictions: As we discussed, I am not seeing any evidence at this time of a heart attack or recurrence of your pericardial effusion. I recommend you continue to take your anti-inflammatory medications and make sure you are taking measures to avoid irritating your stomach with these medications as well such as using omeprazole or taking this pill with food. Please return with any new or worsening symptoms and follow-up with your sleeve baster. Clinical Impressions Clinical Impression: Acute chest pain Instructions Patient Instructions: DI for Atypical Chest Pain Discharge ED Provider: Raleigh Burton Adult HPI General Chief complaint: Chest Pain Stated complaint: CP Time Seen by Provider: 01/09/24 11:24 History of Present Illness HPI narrative: This patient presents for evaluation of epigastric abdominal pain, chest pain, that is nonpleuritic, nonexertional, intermittent, gradual in onset starting multiple weeks ago, denies any overt exacerbation of his symptoms today. He has had similar symptoms secondary to history of pericarditis, which is since grossly resolved. He had associated pericardial effusion at this time. He does note that his symptoms are alleviated by sitting forward. He does report a lot of recent stress due to hospital bills and feels that his symptoms may be due to anxiety or developing an ulcer in his stomach. He denies any nausea or vomiting. Denies any palpitations. Denies any fevers or chills. Denies any shortness of breath. Please note that above description of symptoms, in this electronic medical record under categorization of recalled from ER triage doctor by RN are reflective of an initial nursing assessment, however, is not reflective of my full history and physical exam that was personally taken and clarified. Consequentially, this preceding description of symptoms, which may include the patient's categorized chief complaint in the EMR, do not reflect my personal clinical impression, and the ultimate description of history of present illness and patient stated complaints should be deferred to this section of the note. Unless stated otherwise or congruent with this section of the note, additional signs, symptoms, or incongruence should be interpreted as inaccurate with my clinical impression. Related Data Previous Rx's Medication Instructions Recorded aspirin 81 mg chewable tablet 81 mg PO DAILY #100 tabs 05/11/23 atorvastatin 20 mg tablet (Lipitor) 20 mg PO DAILY #90 tabs 05/11/23 lisinopril 10 mg tablet 10 mg PO DAILY #90 tabs 05/11/23 metformin 500 mg tablet 500 mg PO BID #180 tabs 05/11/23 nicotine 21 mg/24 hr daily 1 patch transdermal DAILY #28 ea 05/11/23 transdermal patch ibuprofen 800 mg tablet 800 mg PO TID PRN pain 7 days #20 07/18/23 tabs omeprazole 20 mg capsule,delayed 20 mg PO DAILY #30 caps 07/19/23 release albuterol sulfate 90 mcg/actuation 2 puff inhalation QID PRN 12/21/23 aerosol inhaler shortness of breath or wheezing #8.5 grams Allergies Allergy/AdvReac Type Severity Reaction Status Date / Time No Known Allergies Allergy Verified 12/14/23 08:15 [facility] Disclaimer: The information contained in this section may have been updated after the patient was seen, as this information can be updated by other users. Medical History (Updated 01/09/24 @ 15:30 by Raleigh Burton MD) Recurrent idiopathic pericarditis CAD in [place] artery High cholesterol Diabetes Family History Other Dementia Family history of hyperlipidemia Family history of hypertension Family history of myocardial infarction Social History Smoking Status: Current every day smoker tobacco type: cigarettes alcohol intake: current substance use type: denies use current occupational status: employed Travel in the last 8 weeks: None household members: spouse housing: house ROS Obtained: Yes other As per HPI Physical Exam General General appearance: alert and in no apparent distress Head Head exam: atraumatic and normocephalic Eye Eye exam: Present normal appearance Neck Neck exam: Present normal inspection Chest Chest inspection: Present normal inspection and symmetric chest wall rise Respiratory Respiratory exam: Present normal lung sounds bilaterally; Absent respiratory distress Cardiovascular Cardiovascular exam: Present regular rate and normal rhythm Abdominal Exam Abdominal exam: Present soft Neurological Exam Neurological exam: Present alert and oriented X3 Psychiatric Psychiatric exam: Present normal affect and normal mood Skin Skin exam: Present warm and dry Medical Decision Making Medical Records Medical records reviewed: Yes I reviewed the patient's medical records. Giovanni Inquiry Pt receiving controlled substance: No Vital Signs: 01/09/24 11:24 01/09/24 11:30 01/09/24 12:32 Temperature 97.7 F Temperature Source Oral Pulse Rate 59 L 58 L Pulse Rate [Radial] 71 Respiratory Rate 16 Blood Pressure 132/79 127/82 Blood Pressure [Right Arm] 147/90 H Blood Pressure Mean 98 Blood Pressure Mean [Right Arm] 109 Blood Pressure Source Blood Pressure Source [Right Arm] Automatic Cuff Blood Pressure Position Blood Pressure Position [Right Arm] Sitting 02 Sat by Pulse Oximetry 100 94 L 99 Oxygen Delivery Method Room Air Room Air 01/09/24 13:00 01/09/24 13:31 01/09/24 14:00 Temperature Temperature Source Pulse Rate 67 61 64 Pulse Rate [Radial] Respiratory Rate Blood Pressure 118/76 130/80 134/81 Blood Pressure [Right Arm] Blood Pressure Mean Blood Pressure Mean [Right Arm] Blood Pressure Source Blood Pressure Source [Right Arm] Blood Pressure Position Blood Pressure Position [Right Arm] 02 Sat by Pulse Oximetry 99 98 98 Oxygen Delivery Method Room Air 01/09/24 14:30 01/09/24 15:39 Temperature 98.1 F Temperature Source Oral Pulse Rate 61 61 Pulse Rate [Radial] Respiratory Rate 18 Blood Pressure 138/81 131/90 Blood Pressure [Right Arm] Blood Pressure Mean Blood Pressure Mean [Right Arm] Blood Pressure Source Automatic Cuff Blood Pressure Source [Right Arm] Blood Pressure Position Sitting Blood Pressure Position [Right Arm] 02 Sat by Pulse Oximetry 98 Oxygen Delivery Method Room Air Lab Data Lab Results 01/09/24 11:25: WBC 5.4, RBC 5.19, Hgb 17.2, Hct 51.2, MCV 98.8 H, MCH 33.1 H, MCHC 33.5, RDW 12.8, Plt Count 175, MPV 8.5, Neut % (Auto) 53.3, Lymph % (Auto) 35.0, [place] % (Auto) 5.5, Eos % (Auto) 4.3, Baso % (Auto) 1.9, Neut # (Auto) 2.9, Lymph # (Auto) 1.9, [place] # (Auto) 0.3, Eos # (Auto) 0.2, Baso # (Auto) 0.1, Sodium 136, Potassium 4.9, Chloride 103, Carbon Dioxide 28, Anion Gap 9.9, BUN 11, Creatinine 0.70, Estimated Creat Clear 159, Estimated GFR 117, Est GFR ( Amer) 141, Glucose 141 H, Calcium 10.2, Troponin I < 0.01, Lipase 78 01/09/24 14:25: Troponin I < 0.01 01/09/24 11:25 01/09/24 11:25 Orders (Tests/Meds): ED MEDICATIONS Discontinued Medications Generic Name Dose Route Start Last Admin Trade Name Freq PRN Reason Stop Dose Admin Belladonna Alkaloids 60 ml 01/09/24 12:01 01/09/24 12:07 Belladonna Alkaloids 60 Ml Ml PO 01/09/24 12:02 60 ml ONCE ONE Administration Sodium Chloride 10 ml 01/09/24 11:29 Sodium Chloride 0.9% 10ml Flush Syringe IV 02/08/24 11:28 NEEDED PRN Maintain IV Site ORDERS Category Date Time Status XR chest portable Stat Exams 01/09/24 11:29 Completed Basic Metabolic Panel Stat Lab 01/09/24 11:25 Completed Complete Blood Count Auto Diff Stat Lab 01/09/24 11:25 Completed Lipase Stat Lab 01/09/24 11:25 Completed Troponin I Q3H Lab 01/09/24 14:25 Completed Troponin I Stat Lab 01/09/24 11:25 Completed Medical Decision Narrative: Patient with history and exam per above presenting for evaluation of epigastric abdominal pain Diagnoses considered include Pancreatitis, gastritis, PUD, pericarditis, ACS, pneumonia, clinically there is no evidence at this time to suggest dissection, perforation, or other acute surgical pathology. ED workup and treatment included: ED MEDICATIONS Discontinued Medications Generic Name Dose Route Start Last Admin Trade Name Ananthq PRN Reason Stop Dose Admin Belladonna Alkaloids 60 ml 01/09/24 12:01 01/09/24 12:07 Belladonna Alkaloids 60 Ml Ml PO 01/09/24 12:02 60 ml ONCE ONE Administration Sodium Chloride 10 ml 01/09/24 11:29 Sodium Chloride 0.9% 10ml Flush Syringe IV 02/08/24 11:28 NEEDED PRN Maintain IV Site ORDERS Category Date Time Status XR chest portable Stat Exams 01/09/24 11:29 Completed Basic Metabolic Panel Stat Lab 01/09/24 11:25 Completed Complete Blood Count Auto Diff Stat Lab 01/09/24 11:25 Completed Lipase Stat Lab 01/09/24 11:25 Completed Troponin I Q3H Lab 01/09/24 14:25 Completed Troponin I Stat Lab 01/09/24 11:25 Completed Labs were independently interpreted by me, significant for no acute finding Imaging was independently visualized and interpreted by me, significant for no acute finding. Please refer to radiology report for full details. My clinical impression at this time is most consistent with epigastric abdominal pain, likely secondary to NSAID use or lingering component of recurrent idiopathic pericarditis. I discussed my clinical impression with patient and answered all questions. After discussion of the risks and benefits of initiating therapy such as NSAIDs, PPI, or both, patient elects to follow-up with his primary care provider prior to changing his ongoing management for these symptoms. At this time, the evidence for any other entities in the differential is insufficient to warrant any further testing or ED observation. This was explained to the patient. The patient was advised that persistent or worsening symptoms require further evaluation. I confirmed the patient's understanding of this discussion. Critical Care Critical Care Time Critical Care Time: No
--- NOTE | 2024-01-09 11:29 | XR_ITS ---
FINAL REPORT CLINICAL HISTORY: Precordial chest pain COMPARISON: 07/18/2023 FINDINGS: The heart size is normal. The mediastinum is normal. There is no focal infiltrate or edema. There are no pleural effusions. There is no pneumothorax. There is no osseous abnormality. IMPRESSION: No acute cardiopulmonary process Reviewed, Interpreted and Dictated by Jovan Vazquez MD Transcribed by Hayde Serra Authenticated and [facility]
[2024-01-09 11:35] LABS: Basophils # 0.1 K/mm3 (0-0.2); Basophils % 1.9 % (0.1-2.0); Eosinophils # 0.2 K/mm3 (0.0-0.4); Eosinophils % 4.3 % (0.1-12.0); Hematocrit 51.2 % (42.0-52.0); Hemoglobin 17.2 g/dL (14.1-18.0); Lymphocytes # 1.9 K/mm3 (0.7-4.5); Mean Corpuscular HGB Conc 33.5 g/dL (31.8-35.4); Mean Corpuscular Hemoglobin 33.1 pg (27.0-31.2); Mean Corpuscular Volume 98.8 fl (80-94); Mean Platelet Volume 8.5 fl (7.4-10.4); Monocytes # 0.3 K/mm3 (0.1-1.0); Monocytes % 5.5 % (1.7-9.3); Neutrophils # 2.9 K/mm3 (1.8-7.8); Neutrophils % 53.3 % (37.0-80.0); Platelet Count 175 K/mm3 (142-424); Red Blood Count 5.19 M/mm3 (4.60-6.20); Red Cell Distribution Width 12.8 % (11.5-17.5); White Blood Count 5.4 K/mm3 (4.8-10.8)
[2024-01-09 11:42] LABS: Lipase 78 U/L (23-300)
[2024-01-09] MEDS: BELLADONNA ALKALOIDS 60 ML ML PO (12:07)
--- NOTE | 2024-01-09 12:32 | PC.NURSE ---
PT AMBULATORY TO BATHROOM. NO OTHER NEEDS VOICED.
--- NOTE | 2024-01-09 13:20 | PC.NURSE ---
LAB CALLED ABOUT BMP AND TROP
[2024-01-09 13:28] LABS: Chloride 103 mmol/L (98-107); Potassium 4.9 mmoL/L (3.5-5.1); Sodium 136 mmol/L (136-145)
[2024-01-09 13:31] LABS: Blood Urea Nitrogen 11 mg/dl (9-20); Creatinine Clearance Estimated 159 mL/min (50-200); Estimated Glomerular Filt Rate 117 ml/min (>60); GFR (African American) 141 ML/MIN (>60)
[2024-01-09 13:32] LABS: Anion Gap 9.9 mEq/L (5-15); Calcium 10.2 mg/dl (8.4-10.2); Carbon Dioxide 28 mmol/L (22.0-30.0); Glucose 141 mg/dl (74-100)
--- NOTE | 2024-01-09 13:59 | PC.NURSE ---
CALLED DIETARY FOR PT A REGULAR TRAY
[2024-01-09 14:13] LABS: Troponin I < 0.01 ng/ml (0.00-0.034)
[2024-01-09 15:17] LABS: Troponin I < 0.01 ng/ml (0.00-0.034)
== END 2024-01-09 15:39 | disposition home or self-care (01) ==
PROVIDERS: Emergency Provider Emergency Medicine; PCP Family Medicine
DX: R07.9 Chest pain, unspecified (principal); R10.13 Epigastric pain; R00.1 Bradycardia, unspecified; F17.210 Nicotine dependence, cigarettes, uncomplicated; E11.9 Type 2 diabetes mellitus without complications; E78.5 Hyperlipidemia, unspecified; K21.9 Gastro-esophageal reflux disease without esophagitis; Z86.79 Personal history of other diseases of the circulatory system; Z79.84 Long term (current) use of oral hypoglycemic drugs
CPT/HCPCS: 71045; 80048; 83690; 84484; 85025; 93005; 99284

== ENCOUNTER 2025-01-31 09:18 | Outpatient (CLI) | payer OTHER, SELFPAY ==
--- OUTSIDE RECORDS SUMMARY | 2025-01-31 09:21 | XMS_ITS | Continuity of Care Document ---
Author Name [facility] Organization [facility] Care Team Providers Care Ross Lift Operator Name Role Phone [facility] Unavailable Unavailable Problems Combined list of problems from Department of Defense and Veterans Affairs facilities. It does not include entries that were removed or entered in error. 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 poor vision since accident. MRx shows imp only to 20/150 DoD NEW PATIENT OPHTHALMOLOGICAL EXAM Inactive Condition no problem found to associate with recent HAs. pt states HAs have resolved.f/u PRN DoD CLUSTER HEADACHE Active Condition no ophthalmic etology found on exam. Sxs do not point to any concern with ocular system. [facility] visit for: screening exam cardiovascular disorders Active Condition DoD Patient Education Inactive Condition DoD NICOTINE DEPENDENCE Active Condition Do D Medications Combined list of outpatient medications from Department of Defense and Veterans Affairs facilities.Medications provided include 1) outpatient medications from the last 15 months, and 2) patient-reported medications. Medication Details Route Status Patient Instructions Prescription Expires Prescription Number Last Dispense Date Ordering Provider Order Date Order Qty Source ALBUTEROL SULFATE HFA (albuterol sulfate), 90 MCG, HFA AER AD, INHALATION, AHP, 6.7 g CANISTER Cancele d [id number] : 2023 0 Pharmac y Data Transac tion Service Facilit y ALBUTEROL SULFATE HFA (albuterol sulfate), 90 MCG, HFA AER AD, INHALATION, [facility], 18 g CANISTER Cancele d [id number] : 2023 0 Pharmac y Data Transac tion Service Facilit y ALBUTEROL SULFATE HFA (albuterol sulfate), 90 MCG, HFA AER AD, INHALATION, TEVA [place], 8.5 g CANISTER Active [id number] 2023 8.5 Pharmac y Data Transac tion Service Facilit y AZITHROMYCI N (azithromyc in), 500 MG, TABLET, ORAL, TAGI PHARMA, 30 ea. BOTTLE Active [id number] 2023 3 Pharmac y Data Transac tion Service Facilit y METHYLPREDN ISOLONE (METHYLPRED NISOLONE), 4 MG, TAB DS PK, ORAL, [facility], 21 ea. BLIST PACK Active [id number] 2023 21 Pharmac y Data Transac tion Service Facilit y VENTOLIN HFA (ALBUTEROL SULFATE), 90MCG, HFA AER AD, INHALATION, GLAXOSMITHK LINE, 18 g CANISTER Cancele d [id number] : 2023 0 Pharmac y Data Transac tion Service Facilit y Allergies, Adverse Reactions, Alerts Combined list of allergies from Department of Defense and Veterans Affairs facilities. It does not include entries that were removed or entered in error. Substance Category Reaction Severity Reaction type Status Date Reported Comments Source No Known Allergies Drug allergy (disorder) active 05/14/2008 [facility] Encounters Combined list of: 1) Encounters from Department of Veterans Affairs facilities going backup to the last 18 months, not all VA inpatient encounters are included; 2) Encounters from the Department of Defense facilities going backup to 280 months. Location Location Details Encounter Type Encounter Number Reason For Visit Attending Provider ADM Date DC Date Status Disposition Source [place] [facility] Health Nurse) OUTPATIENT [id number] Ready To Quit' BOBO STARR 07/05 Released w/o Limitations [place] [facility] [place] ([facility])(Inte rnal Medicine) OUTPATIENT [id number] ecg YUDI PIPER 08/13 Released w/o Limitations [place] ([facility]In ternal Medicin e) [place] ([facility])([facility] M01D [facility] Dev) OUTPATIENT [id number] sinus STEVE HERNÁNDEZ 08/21 Released w/o Limitations [place] ([employer] [facility] M[facility]D [facility] Dev) [place]Opht halmology ) OUTPATIENT [id number] [facility] E---leslie navarrete appt YUDI MOORE 09/05 Released w/o Limitations [place] ([facility])(Op hthalmo logy) Procedures Combined list of: 1) Procedures from Department of Veterans Affairs facilities going back up to thelast 18 months, not all [place] non-surgical procedures are included; 2) All procedures from the Department of Defense facilities. Procedure Procedure Type Code Date Perfomer Comments [facility] e COLLECTION OF VENOUS BLOOD BY VENIPUNCTURE 9 [facility] GLUCOSE; BLOOD, REAGENT STRIP 8 DoD DETERMINATION OF REFRACTIVE STATE 7 DoD ELECTROCARDIOGRAM, ROUTINE ECG WITH AT LEAST 12 LEADS; INTERPRETATION AND REPORT ONLY 7 [facility] ELECTROCARDIOGRAM, ROUTINE ECG WITH AT LEAST 12 LEADS; WITH INTERPRETATION AND REPORT 7 DoD ESOPHAGOGASTRODUODENO SCOPY, FLEXIBLE, TRANSORAL; WITH BIOPSY, SINGLE OR MULTIPLE 3 [facility] RANGE OF MOTION MEASUREMENTS AND REPORT (SEPARATE PROCEDURE); EACH EXTREMITY (EXCLUDING HAND) OR EACH TRUNK SECTION (SPINE) 1 [facility] Determination Of Refractive State Determination Of Refractive State [id number] YUDI MOORE [facility] Ophthalmological New Patient Start Comprehensive Care Ophthalmological New Patient Start Comprehensive Care [id number] YUDI MOORE [facility] ECG Interpretation And Report Only ECG Interpretation And Report Only [id number] YUDI PIPER [facility] Social History Combined list of available smoking, tobacco, and other social history from Department of Defense and Veterans Affairs facilities. Social History Type Response Date Comment [facility] e This section is an empty social history section. DoD
[2025-01-31 10:03] LABS: Blood Urea Nitrogen 11 mg/dl (9-20); Estimated Glomerular Filt Rate 100 ml/min (>60); GFR (African American) 121 ML/MIN (>60)
== END 2025-01-31 23:59 | disposition home or self-care (01) ==
LOC: RAD 09:18
PROVIDERS: PCP Family Medicine; Visit Provider Family Medicine
DX: H57.12 Ocular pain, left eye (principal)
CPT/HCPCS: 36415; 82565; 84520

== ENCOUNTER 2025-02-05 10:08 | Outpatient (CLI) | payer OTHER, SELFPAY ==
--- OUTSIDE RECORDS SUMMARY | 2025-02-05 10:12 | XMS_ITS | Continuity of Care Document ---
Author Name [facility] Organization [facility] Care Team Providers Care Pipeline Systems Operator Name Role Phone [facility] Unavailable Unavailable Problems Combined list of problems [...] point to any concern with ocular system. [facility] visit for: screening exam cardiovascular [...] INHALATION, AHP, 6.7 g CANISTER Cancele d [id number] : 2023 0 Pharmac y Data Transac tion Service Facilit y ALBUTEROL SULFATE HFA (albuterol sulfate), 90 MCG, HFA AER AD, INHALATION, PRASCO LABS, 18 g CANISTER Cancele d [id number] : 2023 0 Pharmac y Data Transac tion Service Facilit y ALBUTEROL SULFATE HFA (albuterol sulfate), 90 MCG, HFA AER AD, INHALATION, TEVA [place], 8.5 g CANISTER Active [id number] 2023 8.5 Pharmac y Data Transac tion Service Facilit y AZITHROMYCI N (azithromyc in), 500 MG, TABLET, ORAL, TAGI PHARMA, 30 ea. BOTTLE Active [id number] 2023 3 Pharmac y Data Transac tion Service Facilit y METHYLPREDN ISOLONE (METHYLPRED NISOLONE), 4 MG, TAB DS PK, ORAL, [facility], 21 ea. BLIST PACK Active [id number] 2023 21 Pharmac y Data Transac tion Service Facilit y VENTOLIN HFA (ALBUTEROL SULFATE), 90MCG, HFA AER AD, INHALATION, GLAXOSMITHK LINE, 18 g CANISTER Cancele d [id number] : 2023 0 Pharmac y Data Transac tion Service Facilit y Allergies, Adverse Reactions, Alerts Combined list of allergies from Department of Defense and Veterans Affairs facilities. It does not include entries that were removed or entered in error. Substance Category Reaction Severity Reaction type Status Date Reported Comments Source No Known Allergies Drug allergy (disorder) active 05/14/2008 [facility] Encounters Combined list of: 1) Encounters from Department of Veterans Affairs facilities going backup to the last 18 months, not all [facility] inpatient encounters are included; 2) Encounters from the Department of Defense facilities going backup to 280 months. Location Location Details Encounter Type Encounter Number Reason For Visit Attending Provider ADM Date DC Date Status Disposition Source [place] ([facility])([facility] Health Nurse) OUTPATIENT [id number] Ready To Quit' BOBO STARR 07/05 Released w/o Limitations [place] [facility] Health [facility]) [place] ([facility])(Inte rnal Medicine) OUTPATIENT [id number] ecg YUDI PIPER 08/13 Released w/o Limitations [place] ([facility])(In ternal Medicin e) [place] ([facility])([facility] Dev) OUTPATIENT [id number] sinus STEVE HERNÁNDEZ 08/21 Released w/o Limitations [place] ([employer] [facility])([facility] M[facility] CHC Dev) [place] ([place])(Opht halmology ) OUTPATIENT [id number] [facility] HEADACH E---leslie c appt YUDI MOORE 09/05 Released w/o Limitations [place] ([facility]ach [facility])(Op hthalmo logy) Procedures Combined list of: 1) Procedures from Department of Veterans Affairs facilities going back up to thelast 18 months, not all [place] non-surgical procedures are included; 2) All procedures from the Department of Defense facilities. Procedure Procedure Type Code Date Perfomer Comments [facility] e Determination Of Refractive State Determination Of Refractive State [id number] 7 YUDI MOORE [facility] Ophthalmological New Patient Start Comprehensive Care Ophthalmological New Patient Start Comprehensive Care [id number] YUDI MOORE [facility] ECG Interpretation And Report Only ECG Interpretation And Report Only [id number] YUDI PIPER [facility] COLLECTION OF VENOUS BLOOD BY VENIPUNCTURE 9 DoD GLUCOSE; BLOOD, REAGENT STRIP 8 DoD DETERMINATION OF REFRACTIVE STATE 7 DoD ELECTROCARDIOGRAM, ROUTINE ECG WITH AT LEAST 12 LEADS; INTERPRETATION AND REPORT ONLY 7 DoD ELECTROCARDIOGRAM, ROUTINE ECG WITH AT LEAST 12 LEADS; WITH INTERPRETATION AND REPORT 7 DoD ESOPHAGOGASTRODUODENO SCOPY, FLEXIBLE, TRANSORAL; WITH BIOPSY, SINGLE OR MULTIPLE 3 DoD RANGE OF MOTION MEASUREMENTS AND REPORT (SEPARATE PROCEDURE); EACH EXTREMITY (EXCLUDING HAND) OR EACH TRUNK SECTION (SPINE) 1 DoD Social History Combined list of available smoking, tobacco, and other social history from Department of Defense and Veterans Affairs facilities. Social History Type Response Date Comment [facility] e This section is an empty social history section. DoD
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
[2025-02-05] MEDS: GADOTERIDOL INJ 20ML SYRINGE 20 ML IV (11:14)
[2025-02-05] MEDS: SODIUM CHLORIDE 0.9% 10ML SYR (RAD ONLY) 10 ML IV (11:14)
== END 2025-02-05 23:59 | disposition home or self-care (01) ==
LOC: RAD 10:09
PROVIDERS: PCP Family Medicine; Visit Provider Family Medicine
DX: H57.12 Ocular pain, left eye (principal)
CPT/HCPCS: 70543; A9576

== ENCOUNTER 2025-04-02 13:19 | Outpatient (CLI) | payer OTHER, SELFPAY ==
--- OUTSIDE RECORDS SUMMARY | 2025-04-02 13:20 | XMS_ITS | Continuity of Care Document ---
Author Name [facility] Organization [facility] Care Team Providers Care Hotel Operations Manager Name Role Phone [facility] Unavailable Unavailable Problems Combined list of problems [...] point to any concern with ocular system. [facility] visit for: screening exam cardiovascular disorders Active Condition DoD Patient Education Inactive Condition DoD NICOTINE DEPENDENCE Active Condition Do D Allergies, Adverse Reactions, Alerts Combined list of allergies from Department of Defense and Veterans Affairs facilities. It does not include entries that were removed or entered in error. Substance Category Reaction Severity Reaction type Status Date Reported Comments Source No Known Allergies Drug allergy (disorder) active 05/14/2008 [facility] Encounters Combined list of: 1) Encounters from Department of Veterans Affairs facilities going backup to the last 18 months, not all VA inpatient encounters are included; 2) Encounters from the Department of Defense facilities going backup to 280 months. Location Location Details Encounter Type Encounter Number Reason For Visit Attending Provider ADM Date DC Date Status Disposition Source [place] [facility] [facility] Nurse) OUTPATIENT [id number] Ready To Quit' BOBO STARR 07/05 Released w/o Limitations [place] ([facility] [place] ([facility])(Inte rnal Medicine) OUTPATIENT [id number] ecg YUDI PIPER 08/13 Released w/o Limitations [place] ([facility]ach [facility]In ternal Medicin e) [facility] [place] [facility] OUTPATIENT [id number] sinus CHAMBERS, STEVE S 08/21 Released w/o Limitations [place] ([employer] [facility]AM H M01D CHC Dev) [place] [facility] OUTPATIENT [id number] [facility] HEADACH E---spe c appt YUDI MOORE 09/05 Released w/o Limitations [place] ([employer] [facility]Op hthalmo logy) Procedures Combined list of: 1) Procedures from [facility] of [facility] Affairs facilities [facility], not all [place] non-surgical procedures are included; 2) All procedures from the Department of Defense facilities. Procedure Procedure Type Code Date Perfomer Comments [facility] e COLLECTION OF VENOUS BLOOD BY VENIPUNCTURE 9 [facility] GLUCOSE; BLOOD, REAGENT STRIP 8 DoD DETERMINATION OF REFRACTIVE STATE 7 [facility] ELECTROCARDIOGRAM, ROUTINE ECG WITH AT LEAST 12 LEADS; INTERPRETATION AND REPORT ONLY 7 [facility] ELECTROCARDIOGRAM, ROUTINE ECG WITH AT LEAST 12 LEADS; WITH INTERPRETATION AND REPORT 7 DoD ESOPHAGOGASTRODUODENO SCOPY, FLEXIBLE, TRANSORAL; WITH BIOPSY, SINGLE OR MULTIPLE 3 DoD RANGE OF MOTION MEASUREMENTS AND REPORT (SEPARATE PROCEDURE); EACH EXTREMITY (EXCLUDING HAND) OR EACH TRUNK SECTION (SPINE) 1 [facility] Determination Of Refractive State Determination Of Refractive State [id number] 7 YUDI MOORE [facility] Ophthalmological New Patient Start Comprehensive Care Ophthalmological New Patient Start Comprehensive Care [id number] 7 YUDI MOORE [facility] ECG Interpretation And Report Only ECG Interpretation And Report Only [id number] YUDI PIPER [facility] Social History Combined list of available smoking, tobacco, and other social history from Department of Defense and Veterans Affairs facilities. Social History Type Response Date Comment Sour e This section is an empty social history section. [facility]
--- OUTSIDE RECORDS SUMMARY | 2025-04-02 13:22 | XMS_ITS | Encounter Summary ---
Author [place] [address] Care Team Providers Care Metal Rolling Mill Operator Name Role Phone Kenn North MD Primary Care Provider [phone] Encounter Details Date Type Department Care Team (Late st Contact Info) Description 12/07/2012 Orders Only [facility] [address] [address] Matias Carey MD Social History Tobacco Use Types Packs/Day Years Used Date Smoking Tobacco: Every Day Cigarettes Smokeless Tobacco: Current Chew Alcohol Use Standard Drinks/Week Comments Yes 5 (1 standard drink = 0.6 oz pur e alcohol) daily Sex and Gender Information Value Date Recorded Sex Assigned at Not on file Legal Sex Male 3:17 AM EDT Gender Identity Not on file Sexual Orientation Not on file documented as of this encounter Plan of Treatment Not on file documented as of this encounter Procedures Procedure Name Priority Date/Time Associated Diagnosis Comments ED EGD Routine 12/07/2012 7:30 AM EDT documented in this encounter Results * [facility] EGD (12/07/2012 7:30 AM EDT) 12/07/2012 7:30 AM EDT Impressions ED - 12/07/2012 9:05 AM EDT Ectopic Mucosa in the distal esophagus; r/o Ceballos's. Subtle mucosal changes in the middle third of the esophagus; r/o eosinophilic esophagitis. Erythema and erosions in the duodenal bulb compatible with duodenitis. Normal mucosa in the antrum. (Biopsy to r/o H. pylori). Matias Carey MD GI PROCEDURE ORDERABLES Final R esult ED documented in this encounter Visit Diagnoses Not on filedocumented in this encounter Additional Health Concerns Infection Onset Date Last Indicated Resolved Time R/O COVID-09/07/2022 09/07/2022 09/07/2022 5:06 PM EST COVID-19 09/07/2022 09/07/2022 09/27/2022 10:1 2 PM EST documented as of this encounter Care Teams Metal Rolling Mill Operator Relationship Specialty Start Date End Date Kenn North MD [address] [place] [phone] PCP - General Family Medicine 11/12/12 documented as of this encounter
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
--- OUTSIDE RECORDS SUMMARY | 2025-04-02 13:24 | XMS_ITS | Encounter Summary ---
Author Organization [facility] Address [address] [place] [address] Care Team Providers Care Fiber Worker Name Role Phone Unavailable Primary Care Provider Unavailabl e Encounter Details Date Type Department Care Team (Late st Contact Info) Description 01/30/2025 Community Orders Community Practice [address] [place] [address] Gerson Waldron MD [facility] [place] [address] Social History Tobacco Use Types Packs/Day Years Used Date Smoking Tobacco: Never Assessed Sex and Gender Information Value Date Recorded Sex Assigned at Not on file Legal Sex Male 7:27 PM EDT Gender Identity Not on file Sexual Orientation Not on file documented as of this encounter Plan of Treatment Not on file documented as of this encounter Visit Diagnoses Not on filedocumented in this encounter
--- OUTSIDE RECORDS SUMMARY | 2025-04-02 13:24 | XMS_ITS | Clinical Summary ---
Author Organization [facility] Address [address] [place] [address] Care Team Providers Care Finance Business Partner Name Role Phone Unavailable Primary Care Provider Unavailabl e Encounters Date Type Department Care Team Description 01/30/2025 Community [facility] Community Practice [address] [place] [address] Gerson Waldron MD from Last 3 Months Social History Tobacco Use Types Packs/Day Years Used Date Smoking Tobacco: Never Assessed Sex and Gender Information Value Date Recorded Sex Assigned at Not on file Legal Sex Male 7:27 PM EDT Gender Identity Not on file Sexual Orientation Not on file Plan of Treatment Not on file
--- NOTE | 2025-04-02 13:45 | CA_ITS ---
APPROVED REPORT EXAM: Comprehensive 2D, Doppler, and color-flow Echocardiogram Ribbon Winder: Micaela Boudreaux CRT Ht: 5 ft 11 in Wt: 203lbs BSA: 2.12 BP: 118/76 mmHg Indications: Chest Pain, Diabetes, CAD, recurrent idiopathic pericarditis, smoker, hyperlipidemia 2D Dimensions LA Volume 19.40 mL LA Volume Index 9.15 mL/m2 (M/F) 16-34 M-Mode Dimensions RVDd 2.47 cm (0.9-2.6) LA Diam 3.27 cm (1.9-4.0) LVDd 4.18 cm (3.5-5.7) LVDs 2.50 cm (3.5-5.7) IVSd 1.39 cm (0.6-1.1) PWd 0.82 cm (0.6-1.1) EF (Teich) 71.30% FS 40.20% EDV (Teich) 77.70 mL TAPSE 1.19 (<1.7) ESV (Teich) 22.30 mL LV Diastology E Decel Time 173 (160-240 msec) E/A Ratio 0.7 MED A' 15.50 cm/s LAT A' 13.60 cm/s Aortic Valve AO Peak GR. 7.30 mmHg Mitral Valve MV E Max Temo. 58.0 (40-130 cm/s) MV A Velocity 81.0 (40-130 cm/s) E/A Ratio 0.72 MV PHT 51.0 ms Pulmonary Valve PV Peak Velocity 104.0 (50-150 cm/s) Tricuspid Valve TR P. Velocity 145.00 cm/s RAP Estimate 10.00 mmHg RVSP 18.40 mmHg Left Ventricle The left ventricle is normal size. The left ventricular systolic function is normal. The left ventricular ejection fraction is within the normal range. There is normal left ventricular wall thickness. There is normal LV segmental wall motion. The left ventricular diastolic function is normal. LVEF is 55%. Right Ventricle The right ventricle is normal size. The right ventricular systolic function is normal. Atria The left atrium size is normal. The right atrium size is normal. There is no Doppler evidence of interatrial shunt. Aortic Valve The aortic valve opens well. There is no aortic valvular stenosis. No aortic regurgitation is present. Mitral Valve The mitral valve is normal in structure. No evidence of mitral valve stenosis. Trace mitral regurgitation. Tricuspid Valve Tricuspid valve is grossly normal in structure and function. Trace tricuspid regurgitation. There is insufficient TR jet to estimate RVSP. Pulmonic Valve The pulmonary valve is normal in structure. Trace pulmonic regurgitation. Great Vessels The aortic root is normal in size. IVC is normal in size and collapses >50% with inspiration. Pericardium There is no pericardial effusion. Other Information Study Quality: Fair Conclusion Normal biventricular systolic function. No significant valvular stenosis or regurgitation. Electronically signed by : Farrah Nowak MD 04/06/2025 22:42:01
== END 2025-04-02 23:59 | disposition home or self-care (01) ==
LOC: RT 13:19
PROVIDERS: PCP Family Medicine; Visit Provider Internal Medicine
DX: I25.10 Atherosclerotic heart disease of native coronary artery without angina pectoris (principal); K21.9 Gastro-esophageal reflux disease without esophagitis; I30.0 Acute nonspecific idiopathic pericarditis; E11.9 Type 2 diabetes mellitus without complications; F17.200 Nicotine dependence, unspecified, uncomplicated; E78.5 Hyperlipidemia, unspecified
CPT/HCPCS: 93306

== ENCOUNTER 2025-06-26 12:06 | Day surgery (SDC) | payer OTHER, SELFPAY ==
--- NOTE | 2025-06-20 11:30 | EXP.HP ---
History of Present Illness *Admission Date: 06/26/25 *History of present illness: Mr. Munson is a 59-year-old gentleman who is here for diagnostic EGD and colonoscopy. The patient has had left upper abdominal pain for a couple of years. He has had a cardiac evaluation and initially had an abnormal EKG that is coronary angiography was normal. He states that this was felt to be reflux and he has been on pantoprazole and famotidine. He does notice some mild relief of his pain by passing flatus or bowel movement. He also states that this improves with eating. The patient reports no rectal bleeding, weight loss or family history of colon cancer. He does state that his mother had Crohn's disease. He has had pancreatitis related to alcohol consumption. His CAT scan imaging of the abdomen in 2020 showed no evidence of chronic pancreatitis. He did have an EGD 15 to 20 years ago and has never had a colonoscopy. The examination is deemed medically necessary for diagnostic EGD and colonoscopy. The patient has been seen, interviewed and examined prior to the procedure by both myself and the anesthesia provider. [facility] Disclaimer: The information contained in this section may have been updated after the patient was seen, as this information can be updated by other users. Medical History Hiatal hernia Detached retina, right Recurrent idiopathic pericarditis CAD in [place] artery High cholesterol Diabetes Surgical History H/O cardiac catheterization H/O detached retina repair Family History Other Dementia Family history of hyperlipidemia Family history of hypertension Family history of myocardial infarction Social History Smoking Status: Current every day smoker tobacco type: cigarettes alcohol intake: current alcohol intake frequency: 0-2 drinks per day substance use type: denies use current occupational status: employed Travel in the last 8 weeks?: None household members: spouse housing: house Have you lived/traveled outside US in past 30 days?: No Contact w/someone who lives/traveled outside US past 30 days?: No Exposure to someone with infectious disease in past 14 days?: No Do you have a fever (greater than 100.4 F or 38 C)?: No Have you tested positive for COVID-19?: No Exposed to someone with COVID-19 in past 14 days?: No Do you have a sore throat?: No Do you have a cough?: No Do you have any weakness?: No Do you have any diarrhea?: No Are you experiencing any unusual bleeding?: No Do you have any muscle aches/pain?: No Do you have any abdominal pain?: No Are you experiencing loss of taste or smell?: No Other Medical History Have you received the Flu Vaccine for this season: No Have you received the Pneumonia Vaccine: No Review of Systems Review of Systems Review of systems (narrative): Negative *Cardiovascular Comments: Negative *Gastrointestinal Comments: Negative *Genitourinary Comments: Negative *Musculoskeletal Comments: Negative *Neurologic Comments: Negative Meds Home Medications and Allergies Home Medications ?Medication ?Instructions ?Recorded ?Confirmed ?Type ibuprofen 800 mg tablet 800 mg PO TID PRN pain 7 days #20 07/18/23 06/26/25 Rx tabs albuterol sulfate 90 mcg/actuation 2 puff inhalation QID PRN 12/21/23 06/26/25 Rx aerosol inhaler shortness of breath or wheezing #8.5 grams atorvastatin 20 mg tablet (Lipitor) 20 mg PO DAILY #90 tabs 12/17/24 06/26/25 Rx lisinopril 10 mg tablet 10 mg PO DAILY #90 tabs 12/17/24 06/26/25 Rx metformin 1,000 mg tablet 1,000 mg PO BID #180 tabs 01/29/25 06/26/25 Rx famotidine 20 mg tablet (Acid 20 mg PO DAILY #90 tabs 04/09/25 06/26/25 Rx Chart Collector (famotidine)) sodium,potassium,mag sulfates 17.5 See Rx Instructions PO .COMPLEX 06/12/25 Rx gram-3.13 gram-1.6 gram oral soln #354 mL (Suprep Bowel Prep Kit) New Prescriptions to Start Prescriptions: Allergies Allergy/AdvReac Type Severity Reaction Status Date / Time No Known Allergies Allergy Verified 06/26/25 12:29 Exam *Routine HEENT Exam Head: Present normocephalic Eye: Present EOMI and PERRL ENT: Present mucous membranes moist *Routine Neck Exam Neck: Present supple *Routine Respiratory Exam Respiratory: Present CTA bilaterally *Routine Cardiovascular Exam Cardiovascular: Present RRR *Routine Abdominal Exam Abdominal: Present soft and normoactive bowel sounds; Absent tenderness *Routine Rectal Exam Rectal:: deferred *Routine Genitalia Exam Genitalia:: deferred *Routine Extremities Exam Extremities: Absent cyanosis, clubbing or edema *Routine Skin Exam Skin: Present warm; Absent rash *Routine Neurological Exam Neurological: Present alert and oriented X3 Assessment and Plan *Assessment and plan (1) LUQ pain: Status: Acute Category: Medical Code(s): R10.12 - Left upper quadrant pain (2) Family history of Crohn's disease: Status: Acute Category: Medical Code(s): Z83.79 - Family history of other diseases of the digestive system (3) Chronic gastroesophageal reflux disease: Status: Acute Category: Medical Code(s): K21.9 - Gastro-esophageal reflux disease without esophagitis Plan A/P: 1. Left upper quadrant abdominal pain with family history of Crohn's disease and personal history of GERD is the preprocedural diagnosis. The patient will be anesthetized/sedated using MAC sedation. The patient has been seen and examined. Cardiac and lung assessment prior to the examination is stable. Proceed with planned diagnostic EGD and colonoscopy.
[2025-06-24 10:45] VITALS: BMI 27.8
--- NOTE | 2025-06-25 07:59 | HMH.PROCNOTE ---
[facility] Procedure Note Date: 06/26/25 Time: 13:32 Procedure Note:: Upper Endoscopy Procedure Report: Esophagogastroduodenoscopy with cold biopsies Endoscopost: Vidal Rousseau II, MD Referring Physician: Amiclar Waldron MD Date of Procedure: June 26, 2025 Equipment: Olympus [id number]-1100 standard upper endoscope Sedation: MAC sedation Indications: Mr. Munson is a 59-year-old gentleman who is here for diagnostic EGD and colonoscopy. The patient has had left upper abdominal pain for a couple of years. He has had a cardiac evaluation and initially had an abnormal EKG that is coronary angiography was normal. He states that this was felt to be reflux and he has been on pantoprazole and famotidine. He does notice some mild relief of his pain by passing flatus or bowel movement. He also states that this improves with eating. The patient does get some mild bloating but no belching, heartburn or reflux. He reports no dysphagia. He has had trouble maintaining his weight. He also reports some loose bowel movements. The patient reports no rectal bleeding or family history of colon cancer. He does state that his mother had Crohn's disease. He has had pancreatitis related to alcohol consumption. His CAT scan imaging of the abdomen in 2020 showed no evidence of chronic pancreatitis. He did have an EGD 15 to 20 years ago and has never had a colonoscopy. The examination is deemed medically necessary for diagnostic EGD and colonoscopy. Procedure: Prior to the procedure, a history and physical exam was performed, and patient's medications and allergies were reviewed. The risks, benefits and alternatives of the sedation and procedure were discussed with the patient. All questions were answered and informed consent was obtained. The patient was brought to the procedure room. Patient identification and proposed procedure were verified by the physician and the nurse. The patient was placed in a left lateral decubitus position and the scope was passed under direct vision. Throughout the procedure, the patient's blood pressure, pulse, and oxygen saturations were monitored continuously. The upper GI endoscopy was accomplished without difficulty. The patient tolerated the procedure well. Findings: The scope was passed directly into the upper esophagus and advanced to the third portion of the duodenum. The post bulbar duodenum, ampulla and duodenal bulb were normal with normal mucosa and conniventes. 2 cold biopsies were taken from the second portion of the duodenum for the disaccharidase assay. The scope was withdrawn through a normal duodenal bulb and pylorus into the stomach. There was mild antral gastropathy. There was reticular/mosaic pattern in the body and fundus consistent with chronic gastritis or even mild portal gastropathy. Cold biopsies were taken at the incisura and lesser curvature to rule out H. pylori. Upon retroflexion there was no hiatal hernia. There were no gastric varices. The scope was then withdrawn into the esophagus. There was grade A reflux esophagitis (LA classification). There were also faint grade 1 esophageal varices. There was no evidence of Ceballos's esophagus. The remainder of the esophageal mucosa was normal. Impression: 1. Grade A reflux esophagitis with mild esophageal dysmotility 2. Faint grade 1 esophageal varices 3. Mild chronic gastritis?rule out H. pylori versus mild portal gastropathy Plan: I will follow-up the biopsies and disaccharidase assay. I do feel that the patient may benefit from addition of Creon. I would also consider addition of omeprazole. I will discuss the findings with the patient and family. I would also like to assess hepatic fibrosis.
--- NOTE | 2025-06-25 08:00 | P.PCN_ITS ---
[facility] Procedure Note Date: 06/26/25 Time: 13:45 Procedure Note:: Colonoscopy Procedure Report: Colonoscopy with cold snare polypectomy Endoscopist: Vidal Rousseau II, MD Referring physician: Amilcar Waldron MD Date of Procedure: June 26, 2025 Equipment: Olympus [id number] adult colonoscope Sedation: MAC sedation Indication: Mr. Munson is a 59-year-old gentleman who is here for diagnostic EGD and colonoscopy. The patient has had left upper abdominal pain for a couple of years. He has had a cardiac evaluation and initially had an abnormal EKG that is coronary angiography was normal. He states that this was felt to be reflux and he has been on pantoprazole and famotidine. He does notice some mild relief of his pain by passing flatus or bowel movement. This also is improved with eating. The patient does have some trouble maintaining his weight. The patient reports no rectal bleeding or family history of colon cancer. He does state that his mother had Crohn's disease. He has had pancreatitis related to alcohol consumption. His CAT scan imaging of the abdomen in 2020 showed no evidence of chronic pancreatitis. He did have an EGD 15 to 20 years ago and has never had a colonoscopy. The examination is deemed medically necessary for diagnostic EGD and colonoscopy. Procedure: Prior to the procedure, a history and physical exam was performed, and patient's medications and allergies were reviewed. The risks, benefits and alternatives of the sedation and procedure were discussed with the patient. All questions were answered and informed consent was obtained. The patient was brought to the procedure room. Patient identification and proposed procedure were verified by the physician and the nurse. The patient was placed in a left lateral decubitus position and the scope was passed under direct vision. Throughout the procedure, the patient's blood pressure, pulse, and oxygen saturations were monitored continuously. The colonoscopy was accomplished without difficulty. The patient tolerated the procedure well. Findings: On digital rectal examination there was normal rectal tone. There were no external hemorrhoids. The prostate was 2+, smooth, soft, symmetric without nodules. The colonoscope was introduced through the anal canal to the rectum and advanced to the cecum. The ileocecal valve and appendiceal orifice were identified. The scope was advanced a short distance into the ileum which appeared grossly normal. The scope was then withdrawn into the colon. There were 3 diminutive polyps (descending x 1 (3 mm) and sigmoid x 2 (4 and 4 mm)). These were all removed via cold snare polypectomy. The remaining cecum, ascending, transverse, descending, sigmoid and rectum were grossly normal. There were no other mucosal abnormalities identified. Upon retroflexion within the rectum there were grade 1-2 internal hemorrhoids. The preparation was excellent throughout with [place] Preparation Score of 9. The cecal time was 12 minutes. Impression: 1. Diminutive colonic polyps x 3 2. Grade 1-2 internal hemorrhoids Plan: I will follow-up the polyp histology and recommend repeat screening/surveillance colonoscopy again in 5 to 7 years.
[2025-06-26 12:32] VITALS: BP 130/78; PULSE 70; RESP 18; TEMP 36.2; O2SAT 98
[2025-06-26] MEDS: LACTATED RINGERS 1000ML 1,000 ML 50 ML IV (12:51)
[2025-06-26 12:59] LABS: POC Glucose,Bedside 93 gm/dL (70-110)
--- NOTE | 2025-06-26 13:01 | P.PNANES_ITS ---
[facility] Disclaimer: The information contained in this section may have been updated after the patient was seen, as this information can be updated by other users. Medical History Hiatal hernia Detached retina, right Recurrent idiopathic pericarditis CAD in [place] artery High cholesterol Diabetes Surgical History H/O cardiac catheterization H/O detached retina repair Family History Other Dementia Family history of hyperlipidemia Family history of hypertension Family history of myocardial infarction Social History Smoking Status: Current every day smoker tobacco type: cigarettes alcohol intake: current alcohol intake frequency: 0-2 drinks per day substance use type: denies use current occupational status: employed Travel in the last 8 weeks?: None household members: spouse housing: house Have you lived/traveled outside US in past 30 days?: No Contact w/someone who lives/traveled outside US past 30 days?: No Exposure to someone with infectious disease in past 14 days?: No Do you have a fever (greater than 100.4 F or 38 C)?: No Have you tested positive for COVID-19?: No Exposed to someone with COVID-19 in past 14 days?: No Do you have a sore throat?: No Do you have a cough?: No Do you have any weakness?: No Do you have any diarrhea?: No Are you experiencing any unusual bleeding?: No Do you have any muscle aches/pain?: No Do you have any abdominal pain?: No Are you experiencing loss of taste or smell?: No [facility] Anesthesia Checklist Patient Identification Patient Identification: Arm Band and Verbal (Name & ) Structural Data Admitted From: Home Planned Operative Procedure/s: EGD & colonscopy Consent for Planned Operative Procedure(s) Verified: Yes Verified Documents: Surgical Consent and History and Physical NPO Status Verified Time NPO: 00:00 Additional verifications Anesthesia Reactions: No Previous Colonoscopy: Yes Airway Assessment Mallampati Score:: Class II Dentition: Edentulous Neurological Assessment Level of Consciousness: Awake, Alert and Appropriate Anesthesia Plan Anesthesia Risk discussed: Yes Anesthesia Plan: Verified ASA Class: III Anesthesia Type: MAC
[2025-06-26 13:48] VITALS: BP 120/60; PULSE 72; RESP 18; TEMP 36.4; O2SAT 97
[2025-06-26 13:58] VITALS: BP 104/54; PULSE 73; RESP 18; O2SAT 95
[2025-06-26 14:08] VITALS: BP 118/56; PULSE 82; RESP 18; O2SAT 96
[2025-06-26 14:18] VITALS: BP 137/83; PULSE 65; RESP 18; O2SAT 97
[2025-06-26 14:45] VITALS: BP 122/78; PULSE 64; RESP 18; TEMP 36.4; O2SAT 98
[2025-07-02 07:10] LABS: ALT (SGPT) P5P 40 IU/L (0-55); AST (SGOT) P5P 35 IU/L (0-40); Alpha 2-Macroglobulins, Qn 252 mg/dL (110-276); Bilirubin, Total <0.2 mg/dL (0.0-1.2); Cholesterol, Total 125 mg/dL (100-199); GGT 35 IU/L (0-65); Glucose 107 mg/dL (70-99); Triglycerides 134 mg/dL (0-149)
[2025-07-02 12:15] LABS: Interpretation Notes (.); Lactase 11.04 (>/= 14.0); Maltase 97.87 (>/= 110.0); Palatinase 5.52 (>/= 8.5); Reference Notes (.); Sucrase 17.66 (>/= 25.0)
== END 2025-06-26 14:45 | disposition home or self-care (01) ==
PROVIDERS: PCP Family Medicine; Visit Provider Internal Medicine Gastroenterology
PROC: 0DJ08ZZ Inspection of Upper Intestinal Tract, Via Natural or Artificial Opening Endoscopic (ICD-10-PCS; CPT 45378; principal; 2025-06-26 14:00)
DX: K21.00 Gastro-esophageal reflux disease with esophagitis, without bleeding (principal); I85.00 Esophageal varices without bleeding; D12.4 Benign neoplasm of descending colon; D12.5 Benign neoplasm of sigmoid colon; K29.50 Unspecified chronic gastritis without bleeding; K64.1 Second degree hemorrhoids; K22.4 Dyskinesia of esophagus; I25.10 Atherosclerotic heart disease of native coronary artery without angina pectoris; Z83.79 Family history of other diseases of the digestive system; E78.00 Pure hypercholesterolemia, unspecified; E11.9 Type 2 diabetes mellitus without complications; F17.210 Nicotine dependence, cigarettes, uncomplicated; Z79.84 Long term (current) use of oral hypoglycemic drugs; Z79.899 Other long term (current) drug therapy
CPT/HCPCS: 43239; 45385; 36415; 82172; 82247; 82465; 82657; 82947; 82962; 82977; 83010; 83521; 84450; 84460; 84478; 88305; J2003; J2704; J7120

== ENCOUNTER 2025-07-25 07:59 | Outpatient (CLI) | payer OTHER, SELFPAY ==
--- OUTSIDE RECORDS SUMMARY | 2025-07-25 08:02 | XMS_ITS | Clinical Summary ---
Author Organization [facility] Address [address] [place] [address] Phone Care Team Providers Care Wedding Decorator Name Role Phone Kenn North MD Primary Care Provider [phone] Allergies No known active allergies Medications OMEPRAZOLE [...] (09/30/2021): Added automatically from request for surgery [id number] Alcohol-induced acute pancre atitis without infection or [...] Used Date Smoking Tobacco: Every Day Cigarettes 0.2 44.5 Started: 01/26/1981 Smokeless Tobacco: Current Chew Tobacco Cessation:Ready to Q uit: No Alcohol Use Standard Drinks/Week Comments Yes 5 (1 standard drink = 0.6 oz pur e alcohol) daily Sex and Gender Information Value Date Recorded Sex Assigned at Not on file Legal Sex Male 3:17 AM EDT Gender Identity Not on file Sexual Orientation Not on file Last Filed Vital Signs Vital Sign Reading [...] Last Done Comments Annual Wellness Exam 1970 Lipids 1977 Diabetic Eye Exam 1985 Kidney Health: uACR 1985 DTaP/TDaP/Td (1 - Tdap) 1986 Hepatitis B Vaccine (1 of 3 - 19+ 3-dose series) 1986 Pneumococcal Vaccine 50+ (1 of 2 - PCV) 1986 Cologuard 2012 Colon Cancer Screening 2012 Colonoscopy 2012 FIT 2012 Sigmoidoscopy 2012 Virtual Colonography 2012 Zoster (1 of 2) 2017 Hemoglobin A1c 03/08/2023 09/07/2022 Kidney Health: eGFR 05/31/2024 05/31/2023, 07/28/2020, 09/13/2019, Additional history exists COVID-19 Vaccine (2024- season) 2025 Influenza Vaccine (#1) 2025 Meningococcal B Vaccine [...] - 145 mmol/L 05/31/2023 10:02 PM EDT [facility] Potassium 4.5 3.5 - 5.0 mmol/L 05/31/2023 10:02 PM EDT [facility] Chloride 101 98 - 107 mmol/L 05/31/2023 10:02 PM EDT [facility] Total CO2 27 22 - 29 mmol/L 05/31/2023 10:02 PM EDT [facility] Anion Gap 8 7 - 16 mmol/L 05/31/2023 10:02 PM EDT [facility] Calcium 9.7 8.6 - 10.4 mg/dL 05/31/2023 10:02 PM EDT [facility] Glucose Lvl 89 74 - 100 mg/dL 05/31/2023 10:02 PM EDT [facility] BUN 13 6 - 20 mg/dL 05/31/2023 10:02 PM EDT [facility] Creatinine 0.97 0.67 - 1.30 mg/dL 05/31/2023 10:02 PM EDT [facility] eGFR (CKD-EPIcr 2020) 92 >=60 mL/min/1.7 3 m2 05/31/2023 10:02 PM EDT [facility] Comment:Estimated GFR was ca lculated using the CKD-EPIcr (2020) equation refit without race. The equation is recommended by the National Kidney Foundation - [place] [employer] Neph[employer] Task Force. Blood VENOUS BLOOD / Unknown 05/31/2023 9:45 PM EDT 05/31/2023 9:45 PM EDT Carol Riley MD CHEMISTRY ORDERABLES Final Resul t Performing Organization Address [facility] Co de Phone Number [facility] [address] [place] [address] * (ABNORMAL) HEMOGLOBIN A1C (09/07/2022 5:40 PM EST) Hgb A1C 9.1(H) 4.2 - 5.6 % 09/07/2022 10:13 PM EST [employer] Est. Avg Glucose 214 mg/dL 09/07/2022 10:13 PM EST [employer] Blood VENOUS BLOOD / Unknown Venipuncture / Unknown 09/07/2022 5:40 PM EST 09/07/2022 5:45 PM EST Narrative [employer] - 09/07/2022 10:13 PM EST REFERENCE RANGE: [...] ORDERABLES Final Resul t Performing Organization Address [facility] Co de Phone Number [employer] [address] [place] [address] from Last 3 Months or Most Recently Relevant to Health Maintenance Insurance Advance Directives For more information, please contact: [phone] * Full Code (Latest Code Status on File) Date Activated Date Inactivated Comments 01/27/2017 8:15 AM 01/27/2017 6:06 PM * Full Code Date Activated Date Inactivated Comments 01/27/2017 8:15 AM 01/27/2017 8:15 AM Care Teams Wedding Decorator Relationship Specialty Start Date End Date Kenn North MD [address] [place] [id number] PCP - General Family Medicine 11/12/12
--- OUTSIDE RECORDS SUMMARY | 2025-07-25 08:02 | XMS_ITS | Clinical Summary ---
Author Organization Healthcare Address [address] [place] [address] Care Team Providers Care House Officer Name Role Phone Unavailable Primary Care Provider Unavailabl e Social History Tobacco Use Types Packs/Day Years Used Date Smoking Tobacco: Never Assessed Sex and Gender Information Value Date Recorded Sex Assigned at Not on file Legal Sex Male 7:27 PM EDT Gender Identity Not on file Sexual Orientation Not on file Plan of Treatment Not on file
--- OUTSIDE RECORDS SUMMARY | 2025-07-25 08:02 | XMS_ITS | Encounter Summary ---
Author Organization [place] [address] Care Team Providers Care Electric Meter Tester Name Role Phone Kenn North MD Primary Care Provider [phone] Encounter Details Date Type Department Care Team (Late st Contact Info) Description 12/07/2012 Orders Only [facility] [address] [place] [address] Matias Carey MD Social History Tobacco Use [...] Indicated Resolved Time R/O COVID-09/07/2022 09/07/2022 09/07/2022 5:0 6 PM EST COVID-19 09/07/2022 09/07/2022 09/27/2022 10:1 2 PM EST documented as of this encounter Care Teams Electric Meter Tester Relationship Specialty Start Date End Date Kenn North MD [address] [place] [phone] PCP - General Family Medicine 11/12/12 documented as of this encounter
--- OUTSIDE RECORDS SUMMARY | 2025-07-25 08:02 | XMS_ITS | Encounter Summary ---
Author Organization [facility] Address [address] [place] [address] Care Team Providers Care Salesperson Women'S Dresses Name Role Phone Unavailable Primary Care Provider Unavailabl e Encounter Details Date Type Department Care Team (Late st Contact Info) Description 01/30/2025 Community Orders Community [facility] [address] [place] [address] Gerson Waldron MD [facility] [place] [address] Social History Tobacco Use Types Packs/Day Years [...]
[2025-07-25 08:46] LABS: Blood Urea Nitrogen 10 mg/dl (9-20); Creatinine,Serum 0.70 mg/dl (0.66-1.25); Estimated Glomerular Filt Rate 116 ml/min (>60); GFR (African American) 141 ML/MIN (>60)
[2025-07-25] MEDS: SODIUM CHLORIDE 0.9% 10ML SYR (RAD ONLY) 10 ML IV (09:12)
[2025-07-25] MEDS: BARIUM SULFATE(READI-CAT2);450ML BOTTLE 450 ML PO (09:13)
[2025-07-25] MEDS: IOPAMIDOL-370 (76%);100ML BOTTLE 75 ML IV (09:13)
--- NOTE | 2025-07-25 09:15 | CT_ITS ---
FINAL REPORT TECHNIQUE: After the administration of oral and intravenous contrast, axial images were obtained through the abdomen and pelvis by computed tomography. The study was performed with techniques to keep radiation dose as low as reasonably achievable, (ALARA). Individual dose reduction techniques using automated exposure control or adjustment of mA and/or kV according to the patient's size were employed. CLINICAL HISTORY: Patient found to have esophageal varices on EGD COMPARISON: 07/02/2021 FINDINGS: Abdomen: The lung bases are clear. Moderate fatty infiltration of the liver. The gallbladder is present. The spleen, pancreas, adrenals and kidneys appear unremarkable. The aorta is normal in caliber. There is no free fluid or adenopathy. Pelvis: The appendix is normal. The urinary bladder is unremarkable. There is no free fluid or adenopathy. IMPRESSION: Moderate fatty liver. No evidence of cirrhosis, splenomegaly, or varices. Reviewed, Interpreted and Dictated by Jovan Vazquez MD Transcribed by Hayde Serra Authenticated and [facility]
== END 2025-07-25 23:59 | disposition home or self-care (01) ==
LOC: RAD 08:00
PROVIDERS: PCP Family Medicine; Visit Provider Internal Medicine Gastroenterology
DX: K76.0 Fatty (change of) liver, not elsewhere classified (principal); I85.00 Esophageal varices without bleeding
CPT/HCPCS: 36415; 74178; 82565; 84520; Q9967

== ENCOUNTER 2025-07-30 12:29 | Outpatient (CLI) | payer OTHER, SELFPAY ==
--- OUTSIDE RECORDS SUMMARY | 2025-07-30 12:32 | XMS_ITS | Encounter Summary ---
Author Organization [place] [address] Care Team Providers Care Metal Treater Name Role Phone Kenn North MD Primary Care Provider [phone] Encounter Details Date Type Department Care Team (Late st Contact Info) Description 12/07/2012 Orders Only [facility] [address] [place] [address] Matias Carey MD Social History Tobacco Use [...] EDT documented in this encounter Results * [facility] EGD (12/07/2012 7:30 AM EDT) 12/07/2012 7:30 [...] as of this encounter Care Teams Metal Treater Relationship Specialty Start Date End Date Kenn North MD [address] [place] [phone] PCP - General Family Medicine 11/12/12 documented as of this encounter
--- OUTSIDE RECORDS SUMMARY | 2025-07-30 12:32 | XMS_ITS | Encounter Summary ---
Author Organization [facility] Address [address] [place] [address] Care Team Providers Care Detective Private Eye Name Role Phone Unavailable Primary Care Provider Unavailabl e Encounter Details Date Type Department Care Team (Late st Contact Info) Description 01/30/2025 Community Orders Community Practice [address] [place] [address] Gerson Waldron MD [facility] [place] [address] Social History Tobacco Use Types Packs/Day Years [...]
--- OUTSIDE RECORDS SUMMARY | 2025-07-30 12:32 | XMS_ITS | Clinical Summary ---
Author Organization Healthcare Address [address] [place] [address] Care Team Providers Care Youth Court Judge Name Role Phone Unavailable Primary Care Provider [...]
--- OUTSIDE RECORDS SUMMARY | 2025-07-30 12:32 | XMS_ITS | Clinical Summary ---
Author Organization [facility] Address [address] [place] [address] Phone Care Team Providers Care Supervisor [employer] Name Role Phone Kenn North MD Primary Care Provider [phone] Allergies No known active allergies Medications OMEPRAZOLE [...] (09/30/2021): Added automatically from request for surgery [id number] Alcohol-induced acute pancre atitis without infection or [...] Date Smoking Tobacco: Every Day Cigarettes 0.3 44.5 Started: 01/26/1981 Smokeless Tobacco: Current Chew [...] - 145 mmol/L 05/31/2023 10:02 PM EDT [facility] Potassium 4.5 3.5 - 5.0 mmol/L 05/31/2023 10:02 PM EDT [facility] Chloride 101 98 - 107 mmol/L 05/31/2023 10:02 PM EDT [facility] Total CO2 27 22 - 29 mmol/L 05/31/2023 10:02 PM EDT [facility] Anion Gap 8 7 - 16 mmol/L 05/31/2023 10:02 PM EDT [facility] Calcium 9.7 8.6 - 10.4 mg/dL 05/31/2023 10:02 PM EDT [facility] Glucose Lvl 89 74 - 100 mg/dL 05/31/2023 10:02 PM EDT [facility] BUN 13 6 - 20 mg/dL 05/31/2023 10:02 PM EDT [facility] Creatinine 0.97 0.67 - 1.30 mg/dL 05/31/2023 10:02 PM EDT [facility] eGFR (CKD-EPIcr 2020) 92 >=60 mL/min/1.7 3 m2 05/31/2023 10:02 PM EDT [facility] Comment:Estimated GFR was ca lculated using the CKD-EPIcr (2020) equation refit without race. The equation is recommended by the [employer] - [place] [employer] of Nephrology Task Force. Blood VENOUS BLOOD / Unknown 05/31/2023 9:45 PM EDT 05/31/2023 9:45 PM EDT Carol Riley MD CHEMISTRY ORDERABLES Final Resul t Performing Organization Address [facility] Co de Phone Number [facility] [address] [place] [address] * (ABNORMAL) HEMOGLOBIN A1C (09/07/2022 5:40 PM EST) Hgb A1C 9.1(H) 4.2 - 5.6 % 09/07/2022 10:13 PM EST [facility] Est. Avg Glucose 214 mg/dL 09/07/2022 10:13 PM EST [facility] Blood VENOUS BLOOD / Unknown Venipuncture / Unknown 09/07/2022 5:40 PM EST 09/07/2022 5:45 PM EST Narrative [facility] - 09/07/2022 10:13 PM EST REFERENCE RANGE: [...] ORDERABLES Final Resul t Performing Organization Address [facility] Co de Phone Number [facility] [address] [facility], [place] [place] [address] from Last 3 Months or Most Recently Relevant to Health Maintenance Insurance Advance Directives For more information, please contact: [phone] * Full Code (Latest Code Status on File) Date Activated Date Inactivated Comments 01/27/2017 8:15 AM 01/27/2017 6:06 PM * Full Code Date Activated Date Inactivated Comments 01/27/2017 8:15 AM 01/27/2017 8:15 AM Care Teams Supervisor [employer] Relationship Specialty Start Date End Date Kenn North MD [address] [place] [phone] PCP - General Family Medicine 11/12/12
--- NOTE | 2025-07-30 13:30 | CA_ITS ---
APPROVED REPORT EXAM: Comprehensive 2D, Doppler, and color-flow Echocardiogram [employer] Line Welder: Magalis Larsen RVT Ht: 5 ft 11 in Wt: 203lbs BSA: 2.12 BP: 122/80 mmHg Indications: CHEST PAIN 2D Dimensions LA Volume 32.00 mL LA Volume Index 15.09 mL/m2 (M/F) 16-34 M-Mode Dimensions RVDd 2.60 cm (0.9-2.6) LA Diam 3.00 cm (1.9-4.0) LVDd 4.71 cm (3.5-5.7) LVDs 2.96 cm (3.5-5.7) IVSd 0.71 cm (0.6-1.1) PWd 0.50 cm (0.6-1.1) EF (Teich) 67.10% FS 37.20% EDV (Teich) 102.90 mL TAPSE 2.91 (<1.7) ESV (Teich) 33.90 mL LV Diastology E Decel Time 210 (160-240 msec) E/A Ratio 1.2 Aortic Valve DARLIN Index 1.72 cm2/m2 AoV Peak Temo. 110.0 (50-130 cm/s) AO Peak GR. 4.80 mmHg AO Mean GR. 2.70 (<5 mmHg) AO VTI 24.6 (18-25 cm) DARLIN (VTI) 3.74 (2.5-4.5 cm2) Mitral Valve MV E Max Temo. 86.0 (40-130 cm/s) MV A Velocity 71.0 (40-130 cm/s) E/A Ratio 1.22 MV PHT 62.0 ms Pulmonary Valve PV Peak Velocity 97.0 (50-150 cm/s) Left Ventricle The left ventricle is normal size. Left ventricular systolic function is normal. The left ventricular ejection fraction is within the normal range. There is normal left ventricular wall thickness. There is normal LV segmental wall motion. The left ventricular diastolic function is normal. LVEF is 55% Right Ventricle The right ventricle is normal size. The right ventricular systolic function is normal. Atria The left atrium size is normal. The right atrium size is normal. There is no color Doppler evidence of interatrial shunt. Aortic Valve The aortic valve opens well. There is no hemodynamically significant aortic valvular stenosis. No aortic regurgitation is present. Mitral Valve The mitral valve is normal in structure. No evidence of mitral valve stenosis. Trace mitral regurgitation is present. Tricuspid Valve The tricuspid valve leaflets are thin and pliable. Trace tricuspid regurgitation. There is insufficient TR jet to estimate RVSP. Pulmonic Valve The pulmonary valve is grossly normal in structure. Trace pulmonic valve regurgitation is present. Great Vessels The aortic root is normal in size. IVC is normal in size and collapses >50% with inspiration. Pericardium There is no pericardial effusion. Other Information Study Quality: Fair Conclusion Normal biventricular systolic function. No significant valvular stenosis or regurgitation. No evidence of pericardial effusion. Electronically signed by : Farrah Nowak MD 07/31/2025 03:25:49
[2025-07-30 13:33] LABS: Hematocrit 43.0 % (42.0-52.0); Hemoglobin 14.7 g/dL (14.1-18.0); Immature Granulocytes % 0.2 %; Mean Corpuscular HGB Conc 34.2 g/dL (31.8-35.4); Mean Corpuscular Hemoglobin 33.2 pg (27.0-31.2); Mean Corpuscular Volume 97.1 fl (80-94); Nucleated Red Blood Cells % 0 %; Platelet Count 169 K/mm3 (142-424); Red Blood Count 4.43 M/mm3 (4.60-6.20); Red Cell Distribution Width-SD 41.1 fL; White Blood Count 5.6 K/mm3 (4.8-10.8)
[2025-07-30 13:59] LABS: Anion Gap 8.3 mEq/L (5-15); Blood Urea Nitrogen 10 mg/dl (9-20); Calcium 9.4 mg/dl (8.4-10.2); Carbon Dioxide 29 mmol/L (22.0-30.0); Chloride 99 mmol/L (98-107); Creatinine,Serum 0.80 mg/dl (0.66-1.25); Estimated Glomerular Filt Rate 100 ml/min (>60); GFR (African American) 121 ML/MIN (>60); Glucose 96 mg/dl (74-100); Potassium 4.3 mmoL/L (3.5-5.1); Sodium 132 mmol/L (136-145); Uric Acid 4.6 mg/dl (3.5-8.5)
[2025-07-30 14:16] LABS: Troponin I < 0.01 ng/ml (0.00-0.034)
[2025-07-31 07:44] LABS: RA Latex Turbid. <10.0 IU/mL (<14.0)
[2025-07-31 14:13] LABS: Antinuclear Antibodies (ANA) Negative (Negative)
== END 2025-07-30 23:59 | disposition home or self-care (01) ==
LOC: RT 12:29
PROVIDERS: PCP Family Medicine; Visit Provider Physician Assistant
DX: I25.10 Atherosclerotic heart disease of native coronary artery without angina pectoris (principal); I30.0 Acute nonspecific idiopathic pericarditis; I10 Essential (primary) hypertension
CPT/HCPCS: 36415; 80048; 84484; 84550; 85025; 85651; 86038; 86431; 93306